=== PATIENT | male | born 1990 | race African-American/Black ===

== ENCOUNTER 2019-11-19 23:00 | Inpatient (IN) ==
--- NOTE | 2019-11-19 23:42 | EKG Report ---
Test Performed on : 11/19/2019 11:15:44 PM Test Reason : sob Blood Pressure : / mmHG Vent. Rate : 120 BPM Atrial Rate : 120 BPM P-R Int : 148 ms QRS Dur : 098 ms QT Int : 332 ms P-R-T Axes : 053 -08 061 degrees QTc Int : 469 ms Sinus tachycardia. Biatrial enlargement Abnormal ECG No previous ECGs available Unconfirmed Result
[2019-11-19 23:57] LABS: BASO# 0.01 X1000 (0.0-0.2); BASO% 0.1 % (0.0-0.8); HEMATOCRIT 40.7 % (42.0-52.0); HEMOGLOBIN 13.9 g/dL (14.0-18.0); IMM GRAN# 0.02 X1000 (0.0-0.04); IMM GRAN% 0.2 % (0.0-0.5); LYMPH# 0.55 X1000 (1.2-3.4); LYMPH% 6.6 % (20.5-51.1); MCHC 34.2 g/dL (33-37); MCV 82.1 FL (81-99); MONO# 0.42 X1000 (0.11-0.59); MPV 11.3 FL (7.4-10.4); NEUT# 7.34 X1000 (1.4-6.5); NEUT% 88.1 % (42.2-75.2); PLT 178 X1000 (130-400); RBC 4.96 XMIL (4.7-6.1); RDW 14.6 % (11.5-14.5); WBC 8.34 X1000 (4.8-10.8)
[2019-11-20 00:24] LABS: ALB/GLOB RATIO 1.3; ALBUMIN 3.7 g/dL (3.5-5.0); CALCIUM 8.4 mg/dL (8.8-10.2); CREATININE 1.4 mg/dL (0.7-1.2); POTASSIUM 3.1 mmol/L (3.5-5.1); TOTAL BILIRUBIN 0.6 mg/dL (0.20-1.00); TOTAL PROTEIN 6.6 g/dL (6.3-8.3)
[2019-11-20 00:25] LABS: INR 1.53; PROTIME 18.7 Seconds (11.0-16.0)
[2019-11-20 00:26] LABS: PTT 40.3 Seconds (22.3-41.8)
[2019-11-20 01:08] LABS: CK INDEX 0.4 (0.0-2.5); CK-MB 1.95 ng/mL (0.0-5.0)
[2019-11-20 01:17] LABS: URINE SOURCE CLEAN CATCH
[2019-11-20] MEDS ORDERED: KLOR-CON PO ONE (01:32)
[2019-11-20] MEDS ORDERED: NS 1,000 ML IV ONE ×2 (01:32→04:54)
[2019-11-20] MEDS ORDERED: POTASSIUM CHLORIDE 10 MEQ/SWI 10 MEQ/100 ML IVPB IV ONE (01:33)
--- NOTE | 2019-11-20 01:37 | PROVIDER DOCUMENTATION ---
This chart was entered by Chelsea Kruse Scribe, acting as scribe for Jason Young MD. HPI-General Adult - General Source: patient - History of Present Illness -Gen Adult Location of Pain/Injury: reports: generalized Quality of Pain: reports: aching Severity: reports: moderate Onset/Duration: reports: other (1month-changing over 2 days) Timing: reports: still present, changing over time, getting worse Context/Activities at Onset: reports: light activity Modifying Factors: improves with: analgesics (tylenol/motrin-no relief), other medication (doxy, tamiflu, bromfed-no relief) Associated Symptoms: reports: cough, EENT symptoms, fatigue, fever/chills, headaches, muscle aches, sinus congestion/drainage, vomiting (x1). denies: chest pain Similar Symptoms Previously?: Yes Recently seen or treated by another doctor?: Yes (urgent care x 2) <Jason Young - Last Filed: 11/20/19 02:26> - General Source: family <Francisco GutiérrezShaggy - Last Filed: 11/20/19 07:01> - General Chief Complaint: Fever Stated Complaint: FEVER/FLU SX Time Seen by Provider: 11/20/19 00:33 Allergies/Adverse Reactions: Patient Allergies Allergy/AdvReac Type Severity Reaction Status Date / Time No Known Allergies Allergy Verified 11/20/19 01:14 Home Medications: Home Medication List Medication Instructions Recorded Confirmed Last Taken Type Albuterol Sulfate Inhaler 2 puff INH [id number] PRN #1 inhaler 11/20/19 Unknown Rx [Ventolin Hfa] Ibuprofen 800 mg PO TID PRN #20 tab 11/20/19 Unknown Rx Review of Systems - Adult - REVIEW OF SYSTEMS - ADULT Constitutional: reports: chills, fever, fatique Eyes: reports: no symptoms reported Ears, Nose, Mouth & Throat: reports: sinus problem. denies: ear pain, throat pain Cardiovascular: denies: chest pain, palpitations, syncope Respiratory: reports: cough, hemoptysis (blood tinged sputum) Gastrointestinal: reports: vomiting (x1). denies: abdominal pain, diarrhea, nausea Genitourinary: reports: no symptoms reported Musculoskeletal: reports: muscle aches Integumentary: reports: no symptoms reported Neurological: reports: headache/migraines. denies: dizziness/vertigo, syncope Psychiatric: reports: no symptoms reported Endocrine: reports: no symptoms reported Hematologic/Lymphatic: reports: no symptoms reported Allergic/Immunologic: reports: no symptoms reported All Other Systems: Reviewed and Negative <Jason Young. - Last Filed: 11/20/19 02:26> Past History - Adult - PAST MEDICAL HISTORY-ADULT Review of Records: reports: Old Records Reviewed, Nursing Assessment Review, Medications Reviewed, Social history reviewed & non-contributory. Major Childhood Illnesses: reports: denies history Cardiovascular: reports: denies history Respiratory: reports: bronchitis Gastrointestinal: reports: denies history Obstetrical/Gynecological: reports: denies history Genitourinary: reports: denies history Musculoskeletal: reports: denies history Neurological: reports: denies history Endocrine/Immune: reports: denies history Other Conditions: reports: denies history - IMMUNIZATION STATUS Childhood Immunizations: See Nurse Assessment Flu Vaccine: See Nurse Assessment - FAMILY HISTORY Family History: reviewed, not pertinent - SOCIAL HISTORY Smoking: quit greater than 1 year Substance Use: denies Living Situation: family <Jason Young. - Last Filed: 11/20/19 02:26> Physical Exam-General - PHYSICAL EXAM-ADULT Initial Vital Signs Reviewed: Yes - CONSTITUTIONAL General Appearance: alert, no apparent distress, obese - EYES Eyes: PERRL/EOMI - HEAD, EARS, NOSE, MOUTH & THROAT HENMT: normocephalic/atraumatic, moist mucous membranes, normal ENT inspection - NECK Neck: non-tender, full range of motion, supple, normal inspection - RESPIRATORY Respiratory: chest non-tender, lungs clear, normal breath sounds - CARDIOVASCULAR Cardiovascular: normal peripheral pulses, tachycardia - GASTROINTESTINAL (ABDOMEN) Abdominal Exam: normal bowel sounds, non tender, soft - LYMPHATIC Lymphatic: no adenopathy - MUSCULOSKELETAL Back Exam: normal inspection Extremity: normal range of motion, non-tender, normal gait, normal inspection - SKIN Integumentary: normal color, normal turgor, warm/dry - NEUROLOGIC Neurologic: grossly normal, no motor/sensory deficits - PSYCHIATRIC Psych/Mental Status: normal mood/affect, normal thought content, normal thought process, oriented x 3 <Jason Young. - Last Filed: 11/20/19 02:26> Progress - PLAN OF CARE/RESULTS Progress/Plan/Lab Results: Vital Signs - 8 hr 11/19/19 23:07 Temperature 100.1 F H Pulse Rate 128 H Respiratory Rate 20 Blood Pressure 132/81 O2 Sat by Pulse Oximetry 92 L Laboratory Results - last 24 hr 11/19/19 11/19/19 11/19/19 23:24 23:24 23:24 WBC 8.34 RBC 4.96 Hgb 13.9 L Hct 40.7 L MCV 82.1 MCH 28.0 MCHC 34.2 RDW Std Deviation 14.6 H Plt Count 178 MPV 11.3 H Immature Gran % (Auto) 0.2 Neut % (Auto) 88.1 H Lymph % (Auto) 6.6 L Lea % (Auto) 5.0 Eos % (Auto) 0.0 Baso % (Auto) 0.1 Immature Gran # (Auto) 0.02 Neut # (Auto) 7.34 H Lymph # (Auto) 0.55 L Lea # (Auto) 0.42 Eos # (Auto) 0.00 Baso # (Auto) 0.01 PT 18.7 H INR 1.53 PTT (Actin FS) 40.3 Sodium Potassium Chloride Carbon Dioxide Anion Gap BUN Creatinine Estimated GFR/1.73 m2 BUN/Creatinine Ratio Glucose Calculated Osmolality Calcium Total Bilirubin AST ALT Alkaline Phosphatase Total Protein Albumin Globulin Albumin/Globulin Ratio Plasma Lactate 1.3 11/19/19 23:37 WBC RBC Hgb Hct MCV MCH MCHC RDW Std Deviation Plt Count MPV Immature Gran % (Auto) Neut % (Auto) Lymph % (Auto) Lea % (Auto) Eos % (Auto) Baso % (Auto) Immature Gran # (Auto) Neut # (Auto) Lymph # (Auto) Lea # (Auto) Eos # (Auto) Baso # (Auto) PT INR PTT (Actin FS) Sodium 134 L Potassium 3.1 L Chloride 98 Carbon Dioxide 20 L Anion Gap 16 BUN 12 Creatinine 1.4 H Estimated GFR/1.73 m2 60 BUN/Creatinine Ratio 9 Glucose 104 Calculated Osmolality 268 Calcium 8.4 L Total Bilirubin 0.60 AST 23 ALT 33 Alkaline Phosphatase 52 Total Protein 6.6 Albumin 3.7 Globulin 2.9 Albumin/Globulin Ratio 1.3 Plasma Lactate Orders Category Date Time Status Cardiac Monitoring NOW Care 11/19/19 23:58 Active IV Insertion NOW Care 11/19/19 23:58 Active NEWS Score >or=5:Order NEWS Bundle S.O. NOW Care 11/19/19 23:56 Active Notify Provider of NEWS Score NOW Care 11/19/19 23:58 Active CHEST-1 VIEW [RAD] Stat Exams 11/19/19 23:58 Taken BLOOD CULTURE [BLDCUL] Stat Lab 11/19/19 23:24 Ordered CBC WITH ELECTRONIC DIFF [HEME] Stat Lab 11/19/19 23:24 Completed CK PROFILE [SP CHEM] Stat Lab 11/19/19 23:24 Received CMP [COMPREHENSIVE METABOLIC PANEL] [CHEM] Stat Lab 11/19/19 23:37 Completed LACTATE, PLASMA [CHEM] Q3H Lab 11/20/19 02:58 Uncollected LACTATE, PLASMA [CHEM] Q3H Lab 11/20/19 05:58 Uncollected LACTATE, PLASMA [CHEM] Stat Lab 11/19/19 23:24 Completed PROTIME WITH INR [COAG] Stat Lab 11/19/19 23:24 Completed PTT [COAG] Stat Lab 11/19/19 23:24 Completed TROPONIN T HIGH SENSITIVITY Stat Lab 11/19/19 23:24 Received URINALYSIS W/POSS RFLX CULT [URINALYSIS] Stat Lab 11/19/19 23:58 Uncollected O2 Per Protocol Stat Oth 11/19/19 23:58 Active EKG [EKG] Stat Ther 11/19/19 23:36 Draft Result Diagrams: 11/19/19 23:24 11/19/19 23:37 - REASSESSMENT Reassessment #1 Time Reassessed: 02:26 Status: improving (Explained positive flu test result to pt and . He is to continue tamiflu and his doxycycline, cough syr prescribe at the urgent care. Wi ll add albuterol and pt to f/u with PCP in 2 to 3 days. To take ibuprofen for fever, body aches) - EKG 1 Time of EKG reading by physician:: 23:38 EKG Read and Signed by:: Francisco Gutiérrez EKG Interpretation (*Must complete 3 of following elements*): Abnormal (biatrial enlargement) Rate: 120 Rhythm: sinus tach Centre: normal QRS: normal IN Interval: normal ST Wave: normal - XRAY 1 XRAY Study: Chest Impression: Normal (per Dr), See EMR Report <Otuguor,Akpomudiar S. - Last Filed: 11/20/19 02:26> - PLAN OF CARE/RESULTS Progress/Plan/Lab Results: Vital Signs - 8 hr 11/19/19 23:07 11/20/19 02:32 Temperature 100.1 F H 101.7 F H Pulse Rate 128 H 129 H Respiratory Rate 20 20 Blood Pressure 132/81 148/104 O2 Sat by Pulse Oximetry 92 L 94 L 11/20/19 00:45 Influenza Screen - Final Nasopharyngeal Laboratory Results - last 24 hr 11/19/19 11/19/19 11/19/19 23:24 23:24 23:24 WBC 8.34 RBC 4.96 Hgb 13.9 L Hct 40.7 L MCV 82.1 MCH 28.0 MCHC 34.2 RDW Std Deviation 14.6 H Plt Count 178 MPV 11.3 H Immature Gran % (Auto) 0.2 Neut % (Auto) 88.1 H Lymph % (Auto) 6.6 L Lea % (Auto) 5.0 Eos % (Auto) 0.0 Baso % (Auto) 0.1 Immature Gran # (Auto) 0.02 Neut # (Auto) 7.34 H Lymph # (Auto) 0.55 L Lea # (Auto) 0.42 Eos # (Auto) 0.00 Baso # (Auto) 0.01 PT INR PTT (Actin FS) Sodium Potassium Chloride Carbon Dioxide Anion Gap BUN Creatinine Estimated GFR/1.73 m2 BUN/Creatinine Ratio Glucose Calculated Osmolality Calcium Total Bilirubin AST ALT Alkaline Phosphatase Creatine Kinase 466 H Creatine Kinase Index 0.4 CK-MB (CK-2) 1.95 Troponin T High Sens Total Protein Albumin Globulin Albumin/Globulin Ratio Plasma Lactate 1.3 Urine Source Urine Color Urine Turbidity Urine pH Ur Specific [place] Urine Protein Ur Glucose (Stick) Ur Ketones (Stick) Urine Blood Urine Nitrite Urine Bilirubin Urobilinogen Dipstick Urine Leukocytes Urine WBC (Auto) Urine RBC (Auto) U Epithel Cells (Auto) Urine Bacteria (Auto) 11/19/19 11/19/19 11/19/19 23:24 23:24 23:37 WBC RBC Hgb Hct MCV MCH MCHC RDW Std Deviation Plt Count MPV Immature Gran % (Auto) Neut % (Auto) Lymph % (Auto) Lea % (Auto) Eos % (Auto) Baso % (Auto) Immature Gran # (Auto) Neut # (Auto) Lymph # (Auto) Lea # (Auto) Eos # (Auto) Baso # (Auto) PT 18.7 H INR 1.53 PTT (Actin FS) 40.3 Sodium 134 L Potassium 3.1 L Chloride 98 Carbon Dioxide 20 L Anion Gap 16 BUN 12 Creatinine 1.4 H Estimated GFR/1.73 m2 60 BUN/Creatinine Ratio 9 Glucose 104 Calculated Osmolality 268 Calcium 8.4 L Total Bilirubin 0.60 AST 23 ALT 33 Alkaline Phosphatase 52 Creatine Kinase Creatine Kinase Index CK-MB (CK-2) Troponin T High Sens 32 H Total Protein 6.6 Albumin 3.7 Globulin 2.9 Albumin/Globulin Ratio 1.3 Plasma Lactate Urine Source Urine Color Urine Turbidity Urine pH Ur Specific [place] Urine Protein Ur Glucose (Stick) Ur Ketones (Stick) Urine Blood Urine Nitrite Urine Bilirubin Urobilinogen Dipstick Urine Leukocytes Urine WBC (Auto) Urine RBC (Auto) U Epithel Cells (Auto) Urine Bacteria (Auto) 11/20/19 00:50 WBC RBC Hgb Hct MCV MCH MCHC RDW Std Deviation Plt Count MPV Immature Gran % (Auto) Neut % (Auto) Lymph % (Auto) Lea % (Auto) Eos % (Auto) Baso % (Auto) Immature Gran # (Auto) Neut # (Auto) Lymph # (Auto) Lea # (Auto) Eos # (Auto) Baso # (Auto) PT INR PTT (Actin FS) Sodium Potassium Chloride Carbon Dioxide Anion Gap BUN Creatinine Estimated GFR/1.73 m2 BUN/Creatinine Ratio Glucose Calculated Osmolality Calcium Total Bilirubin AST ALT Alkaline Phosphatase Creatine Kinase Creatine Kinase Index CK-MB (CK-2) Troponin T High Sens Total Protein Albumin Globulin Albumin/Globulin Ratio Plasma Lactate Urine Source CLEAN CATCH Urine Color YELLOW Urine Turbidity CLEAR Urine pH 6.0 Ur Specific [place] 1.005 Urine Protein NEGATIVE Ur Glucose (Stick) NEGATIVE Ur Ketones (Stick) NEGATIVE Urine Blood NEGATIVE Urine Nitrite NEGATIVE Urine Bilirubin NEGATIVE Urobilinogen Dipstick NORMAL Urine Leukocytes NEGATIVE Urine WBC (Auto) <10 Urine RBC (Auto) <10 U Epithel Cells (Auto) <10 Urine Bacteria (Auto) NEGATIVE Orders Category Date Time Status Cardiac Monitoring NOW Care 11/19/19 23:58 Active IV Insertion NOW Care 11/19/19 23:58 Completed NEWS Score >or=5:Order NEWS Bundle S.O. NOW Care 11/19/19 23:56 Active Notify Provider of NEWS Score NOW Care 11/19/19 23:58 Active CHEST-1 VIEW [RAD] Stat Exams 11/19/19 23:58 Taken BLOOD CULTURE [BLDCUL] Stat Lab 11/19/19 01:09 Results CBC WITH ELECTRONIC DIFF [HEME] Stat Lab 11/19/19 23:24 Completed CK PROFILE [SP CHEM] Stat Lab 11/19/19 23:24 Completed CMP [COMPREHENSIVE METABOLIC PANEL] [CHEM] Stat Lab 11/19/19 23:37 Completed INFLUENZA SCREEN A/B Stat Lab 11/20/19 00:45 Completed LACTATE, PLASMA [CHEM] Lab 11/20/19 02:58 Uncollected LACTATE, PLASMA [CHEM] Lab 11/20/19 05:58 Uncollected LACTATE, PLASMA [CHEM] Stat Lab 11/19/19 23:24 Completed PROTIME WITH INR [COAG] Stat Lab 11/19/19 23:24 Completed PTT [COAG] Stat Lab 11/19/19 23:24 Completed TROPONIN T HIGH SENSITIVITY Stat Lab 11/19/19 23:24 Completed URINALYSIS W/POSS RFLX CULT [URINALYSIS] Stat Lab 11/20/19 00:50 Completed 0.9% Sodium Chloride Inj [Ns] 1,000 ml Med 11/20/19 01:32 Discontinued IV 999 mls/hr Ketorolac [Toradol] Med 11/20/19 02:36 Discontinued 30 mg IV NOW ONE Potassium Chloride 10 Meq/Swi Med 11/20/19 01:33 Discontinued 10 meq in 100 ml IV ONCE Potassium Chloride E.r. [Klor-Con] Med 11/20/19 01:32 Discontinued 40 meq PO NOW ONE O2 Per Protocol Stat Oth 11/19/19 23:58 Active EKG [EKG] Stat Ther 11/19/19 23:36 Draft Result Diagrams: 11/19/19 23:24 11/19/19 23:37 - REASSESSMENT Reassessment #2 Time Reassessed: 03:18 Status: unchanged (HR 132/MIN AND BP 160/. NOT ON A BP MED , NOT AWARE IF CHRONICALLY HYPERTENSIVE. ADD LOPRESSOR NOW.) Reassessment #3 Time Reassessed: 04:36 Status: unchanged (PT STILL FEBRILE, TACHYCARDIC AND HYPERTENSIVE. I HAVE TAKEN TIME TO RE-TAKE HPI AND RE-EXAMINE PT AND DATA. : PT ILL FOR 1 WEEK. GIVEN DOXY AND TAMIFLU FOR 'BRONCHITIS AND PROBABLE FLU (W/ NEG FLU TEST)'.SINUS CONGESTION AND PND, COUGH AND RED/BROWN SPUTM,SOB,MALAISE,H/A. HX OF UNTREATED HTN (NO HEALTH INSURANCE UNTIL 1 MONTH AGO).UNCONTROLLED FEVER TODAY AND PAST 2 DAYS ON DOXY. CXR LOOKS TO HAVE RIGHT BASILAR INFILTRATE.) Reassessment #4 Time Reassessed: 06:46 Status: worsening (pt bacame hypoxic w/ P Ox 89 on rm air. 93% on 2 liter oxygen. calling hospitalist) Reassessment #5 Time Reassessed: 07:00 Status: unchanged (BP BETTER BUT STILL TACHYCARDIA, HYPOXIC, DIAPHORETIC. HAS HAD PNEUMONIA ONCE IN THE PAST.) - CONSULTS/PCP/HOSPITALIST Notification #1 *Consult/PCP/Hospitalist*: DR BAKER Time Discussed: 06:47 Consult Disposition: Admit <Francisco Gutiérrez - Last Filed: 11/20/19 07:01> Departure - Departure Date of Disposition Decision: 11/20/19 Time of Disposition Decision: 02:29 Certified Medical Emergency: Emergent - Critical Care Note This patient required my direct & personal management of CC.: No <Jason Young - Last Filed: 11/20/19 02:26> - Departure Certified Medical Emergency: Emergent - Critical Care Note This patient required my direct & personal management of CC.: Yes Total Time (mins): 46 Critical Care Statement: This patient required my direct personal management to treat or rule out processes, the absence of which, could potentiallly result in sudden, clinically significant life or limb threatening deterioration. <Francisco Gutiérrez - Last Filed: 11/20/19 07:01> - Departure DIAGNOSIS: Influenza A, Hypokalemia, Renal insufficiency, Hypoxemia, Tachycardia Pneumonia Qualifiers: Pneumonia type: due to unspecified organism Laterality: right Lung location: lower lobe of lung Qualified Code(s): J18.1 - Lobar pneumonia, unspecified organism Disposition: ADMITTED INPATIENT 09 Condition: Fair Additional Instructions: ED Follow Up Instructions: You have been treated by a care provider in the Emergency Department. These instructions are being provided to you so you can have an understanding of how to care for yourself upon discharge. Upon discharge from the Emergency Department, you are responsible for making arrangements for follow-up care by a physician of your choice. You have a positive flu test result, you are to continue tamiflu and doxycycline, cough syrup prescribe at the urgent care. start albuterol and pt to f/u with PCP in 2 to 3 days. To take ibuprofen for fever, body aches Take all prescribed medications as directed. Return to the Emergency Department immediately for any new or worsening symptoms. You may call the Physician Referral phone number at [phone] to obtain a list of Physicians who are taking new patients. Prescriptions: Ibuprofen 800 mg PO TID PRN #20 tab PRN Reason: Fever Prescription Printed Albuterol Sulfate Inhaler [Ventolin Hfa] 2 puff INH [id number] PRN #1 inhaler PRN Reason: Cough Prescription Printed Referrals and Follow-Ups: None,PCP [Primary Care Provider] - Discharge Education: Influenza, Adult, [id number], Hypokalemia, Acute Bronchitis, Adult, [id number] Attestation - Physician/ ANGELINA Attestation Patient care was provided by Advanced Practice Provider:: No The physician spent face to face time with patient:: Yes Advanced Practice Provider documentation review:: Supervising physician onsite and consulted in the evaluation and care of this patient. The physician did have a face to face encounter with the patient. <Jason Young - Last Filed: 11/20/19 02:26> - Physician/ ANGELINA Attestation Patient care was provided by Advanced Practice Provider:: No The physician spent face to face time with patient:: Yes Advanced Practice Provider documentation review:: Supervising physician onsite and consulted in the evaluation and care of this patient. The physician did have a face to face encounter with the patient. <Francisco Gutiérrez - Last Filed: 11/20/19 07:01> This chart was documented by the indicated scribe, (Chelsea Kruse Scribe) and accurately reflects the services I performed and decisions made by me, Jason Young MD, as attested by the provider's signature.
[2019-11-20 02:10] LABS: COLOR YELLOW; TURBIDITY URINE CLEAR (CLEAR)
[2019-11-20 02:11] LABS: BILIRUBIN URINE NEGATIVE (NEGATIVE); BLOOD URINE NEGATIVE (NEGATIVE); GLUCOSE URINE NEGATIVE (NEGATIVE); KETONE URINE NEGATIVE (NEGATIVE); LEUKOCYTES URINE NEGATIVE (NEGATIVE); NITRITE URINE NEGATIVE (NEGATIVE); PROTEIN URINE NEGATIVE (NEGATIVE); SP GRAVITY URINE 1.005; UR EPITHELIAL CELLS <10 /HPF (<10); URINE BACTERIA NEGATIVE /HPF; URINE RBC <10 /HPF (<10); URINE WBC <10 /HPF (<10); UROBILINOGEN URINE NORMAL (NORMAL)
[2019-11-20] MEDS ORDERED: TORADOL IV ONE (02:36)
[2019-11-20] MEDS ORDERED: LOPRESSOR IV ONE (03:19)
[2019-11-20] MEDS ORDERED: TYLENOL PO ONE (03:59)
[2019-11-20] MEDS ORDERED: TYLENOL ONE (04:14)
[2019-11-20] MEDS ORDERED: ZITHROMAX PO ONE (04:43)
[2019-11-20] MEDS ORDERED: ROCEPHIN 1 GM in NS 50 ML IV ONE (04:43)
[2019-11-20] MEDS ORDERED: NORVASC PO ONE (04:54)
[2019-11-20] MEDS ORDERED: DUONEB (A & A) INH ONE (06:20)
--- NOTE | 2019-11-20 07:04 | Diag Imaging Result Doc PS360 ---
EXAM: CHEST-1 VIEW 11/19/2019 HISTORY: fever TECHNIQUE: AP portable upright at 0010 COMMENT: There is cardiomegaly. There is ill-defined opacity in the right lower lobe particularly in the costophrenic angle region. There may be a small effusion. There are no previous studies. IMPRESSION: Right lower lobe pneumonia plus minus pleural effusion. Electronically signed by Roverto Mcneil 11/20/2019 7:02 AM
[2019-11-20] MEDS ORDERED: DUONEB (A & A) INH PRN (08:08)
[2019-11-20] MEDS ORDERED: TYLENOL PO PRN (08:08)
[2019-11-20] MEDS ORDERED: DUONEB (A & A) INH SCH (08:08)
[2019-11-20] MEDS ORDERED: APRESOLINE IV PRN (08:08)
[2019-11-20] MEDS ORDERED: MOTRIN PO PRN (08:08)
[2019-11-20] MEDS ORDERED: XOPENEX NEB INH PRN (09:22)
[2019-11-20] MEDS ORDERED: NS 1,000 ML IV SCH (09:30)
[2019-11-20] MEDS ORDERED: MORPHINE IV ONE (10:15)
[2019-11-20] MEDS ORDERED: PHENERGAN IV ONE (10:16)
[2019-11-20] MEDS ORDERED: SODIUM CHLORIDE 0.9% INJ ONE (10:16)
[2019-11-20] MEDS: XOPENEX NEB INH SCH ×3 (10:19→22:02)
[2019-11-20] MEDS ORDERED: LABETALOL IV ONE (10:24)
[2019-11-20] MEDS ORDERED: ATIVAN IV ONE (10:29)
[2019-11-20] MEDS ORDERED: LASIX IV ONE (10:30)
[2019-11-20] MEDS ORDERED: NITROGLYCERIN 0.4 MG/HR PATCH TD ONE (10:32)
[2019-11-20] MEDS ORDERED: ATIVAN ONE (10:36)
[2019-11-20] MEDS ORDERED: LASIX ONE (10:36)
[2019-11-20] MEDS ORDERED: DIPRIVAN 1% 1,000 MG/100 ML BOTTLE IV SCH (10:45)
[2019-11-20] MEDS ORDERED: CARDENE 40 MG/NS 40 MG/200 ML PIGGYBACK IV SCH (11:00)
--- NOTE | 2019-11-20 11:26 | EKG Report ---
Test Performed on : 11/20/2019 10:49:37 AM Test Reason : RHYTHM CHECK Blood Pressure : / mmHG Vent. Rate : 114 BPM Atrial Rate : 114 BPM P-R Int : 140 ms QRS Dur : 106 ms QT Int : 328 ms P-R-T Axes : 062 217 071 degrees QTc Int : 452 ms Sinus tachycardia. Biatrial enlargement Right superior axis deviation Pulmonary disease pattern Abnormal ECG When compared with ECG of 19-NOV-2019 23:15, (Unconfirmed) QRS axis shifted left ST elevation now present in Anterior leads Confirmed by Prabhu Fraire MD ([id number]) on 11/20/2019 7:46:42 PM
[2019-11-20 11:29] LABS: URINE SOURCE CATH
[2019-11-20] MEDS: OFIRMEV 1000 MG/ISOTONIC SOLN 1,000 MG/100 ML BOTTLE IV PRN (11:35)
--- NOTE | 2019-11-20 11:37 | Diag Imaging Result Doc PS360 ---
EXAM: CHEST-PORTABLE 11/20/2019 HISTORY: ET tube and OG tube placement TECHNIQUE: AP chest at 1111 COMMENT: There is an endotracheal tube with its tip at the thoracic inlet and an orogastric tube which passes below the diaphragm. There is diffuse alveolar pulmonary edema which was not the case on 11/20/2019 at 1210. IMPRESSION: Florid pulmonary edema. Cardiomegaly. Electronically signed by Roverto Mcneil 11/20/2019 11:34 AM
--- NOTE | 2019-11-20 11:41 | HISTORY AND PHYSICAL ---
ADDENDUM: I have seen and examined Mr. Coelho today. I got to hear about Mr. Coelho early on this morning, when I was told that he has been admitted for respiratory failure, flu positive, and pneumonia. I understand he was initially admitted to the [facility]. However, he became more short of breath, and then was sent to do a CTA to rule out PE. Unfortunately, at the CT scan, he became more short of breath, he became extremely diaphoretic, vomiting or spitting out some pink, frothy sputum, so he was brought immediately to the ICU. During the initial stages in the ICU, he was given morphine. He was also given 20 mg of IV labetalol, 2 mg of Ativan, and 25 mg of Phenergan. He continued to show impending respiratory arrest, so Anesthesia was called for endotracheal intubation. Before Anesthesia could come in, Mr. Coelho lost pulse, and he was resuscitated for anout 10 minutes. I think a total of about 5 to 6 epinephrine were given, 1 amp of bicarbonate, 1 amp of calcium gluconate were given. The patient was also successfully intubated by Anesthesia group. Post intubation, an EKG seems to suggest tachycardia, some right heart strain, and suspicion of ST-segment mild elevation in V1 and V2. Cardiology was called stat, and I have discussed this with Dr. Lomeli. After the post resuscitation, we are still waiting for imaging studies and laboratory data to have a final diagnosis on Mr. Coelho. WORKING DIAGNOSES: 1. Acute cardiorespiratory arrest. Initial Respiratory arrest followed with cardiac arrest. Patient intubated. Pulmonary on board. I have discussed case with Dr Robbins. 2. Acute pulmonary edema . acute myocardial infarction to be ruled out. Cardiology consulted. I have discussed case with Dr. Lomeli. 3. Severe uncontrolled hypertension, suspicious for hypertensive emergency. 4. Flu positive with severe influenza pneumonia. 5. Renal failure. For now, Mr. Coelho is intubated. Will get both Cardiology and Pulmonary Medicine to evaluate him. We are concerned if he has an acute myocardial infarction or an acute pulmonary emboli causing what seems to be heart failure and respiratory arrest. We are getting a stat echocardiogram, and will wait for Cardiology to evaluate him, and then go from there. Please refer to the details of the history and physical that has been dictated by the GRAVITY PROSPECTING OPERATOR in the chart. TIME SPENT: Critical time spent is 1 hour 30 minutes. cc: Osvaldo Santa MD MTDD
[2019-11-20] MEDS: ZOSYN 3.375 GM in NS 50 ML IV SCH ×3 (11:45→23:01)
[2019-11-20] MEDS: ZYVOX 600 MG/D5W 600 MG/300 ML IVPB IV SCH ×2 (11:45→23:01)
[2019-11-20 11:46] LABS: ALLEN TEST YES; BE -12.5 mmoll (-3.0-3.0); BLOOD TYPE ARTERIAL; METHB 0.6 % (0.0-1.5); O2(CT) 19.1 mL/dL (15.0-23.0); O2HB 90.5 % (95.0-99.0); PO2(98.6) 77 mmHg (60-100); SAMPLE BLOOD; SAO2 92.7 % (95.0-100.0); SRATE 15 BPM; TVOL 500 mL
[2019-11-20 11:47] LABS: BILIRUBIN URINE NEGATIVE (NEGATIVE); BLOOD URINE MODERATE (NEGATIVE); COLOR YELLOW; GLUCOSE URINE NEGATIVE (NEGATIVE); KETONE URINE TRACE mg/dL (NEGATIVE); LEUKOCYTES URINE NEGATIVE (NEGATIVE); NITRITE URINE NEGATIVE (NEGATIVE); PROTEIN URINE 200 mg/dL (NEGATIVE); TURBIDITY URINE HAZY (CLEAR); UROBILINOGEN URINE NORMAL (NORMAL)
[2019-11-20 11:48] LABS: UR EPITHELIAL CELLS <10 /HPF (<10); URINE BACTERIA NEGATIVE /HPF; URINE RBC TNTC /HPF (<10); URINE WBC 20-40 /HPF (<10)
[2019-11-20 11:49] LABS: pH(98.6) 7.03 (7.35-7.45)
[2019-11-20 11:50] LABS: MODALITY VENTILATOR; PCO2(98.6) 75 mmHg (35-45)
[2019-11-20] MEDS ORDERED: NS 500 ML ONE (11:55)
[2019-11-20] MEDS ORDERED: NS 500 ML IV PRN (12:07)
[2019-11-20] MEDS ORDERED: TYLENOL PR PRN (12:07)
[2019-11-20] MEDS ORDERED: SODIUM PHOSPHATE 10 MMOL in NS 250 ML IV PRN (12:15)
[2019-11-20] MEDS ORDERED: SODIUM PHOSPHATE 20 MMOL in NS 250 ML IV PRN (12:15)
[2019-11-20] MEDS ORDERED: POTASSIUM CHLORIDE 60 MEQ in NS 500 ML IV PRN (12:15)
[2019-11-20] MEDS ORDERED: MAGNESIUM SULFATE 2 GM in STERILE WATER INJ. 50 ML IV PRN (12:15)
[2019-11-20] MEDS ORDERED: POTASSIUM CHLORIDE 40 MEQ in NS 250 ML IV PRN (12:15)
[2019-11-20] MEDS ORDERED: LOVENOX SUBQ SCH ×2 (12:15)
[2019-11-20] MEDS: NS 500 ML IV SCH (12:30)
[2019-11-20] MEDS: NIMBEX 80 MG in NS 160 ML IV SCH ×3 (12:40→23:57)
[2019-11-20 12:43] LABS: BASO# 0.02 X1000 (0.0-0.2); BASO% 0.2 % (0.0-0.8); EOS# 0.01 X1000 (0.0-0.7); EOS% 0.1 % (0.0-10.0); HEMATOCRIT 43.7 % (42.0-52.0); HEMOGLOBIN 14.5 g/dL (14.0-18.0); IMM GRAN# 0.05 X1000 (0.0-0.04); IMM GRAN% 0.4 % (0.0-0.5); LYMPH# 0.98 X1000 (1.2-3.4); LYMPH% 8.3 % (20.5-51.1); MCH 27.9 PG (27-31); MCHC 33.2 g/dL (33-37); MONO# 0.18 X1000 (0.11-0.59); MONO% 1.5 % (1.7-9.3); MPV 11.3 FL (7.4-10.4); NEUT# 10.52 X1000 (1.4-6.5); NEUT% 89.5 % (42.2-75.2); PLT 171 X1000 (130-400); RDW 14.6 % (11.5-14.5); WBC 11.76 X1000 (4.8-10.8)
[2019-11-20 12:45] LABS: INR 1.77
--- NOTE | 2019-11-20 12:45 | CARDIOLOGY CONSULTATION ---
DATE: 11/20/2019 REQUESTING PHYSICIAN: Dr. Santa from the Hospitalist Service. REASON FOR CONSULTATION: The patient has suffered a cardiorespiratory arrest and has an abnormal chest x-ray suggesting heart failure. HISTORY: The patient is 29 years of age, presented to the emergency room, I believe at midnight or shortly after midnight, complaining of fever, cough, shortness of breath. This had been going on for a few days. Apparently, the patient had been to an urgent care, where he was prescribed doxycycline and Tamiflu. The patient was tested in the emergency room, and they found that he has a positive result for influenza A. In the ER, the patient apparently became more dyspneic, and as he was getting ready to have a CT scan of the chest, he developed acute respiratory distress,stopped breathing, lost his pulse and required resuscitation measures. Please refer to Hospitalist note for those specific details. He was intubated, brought to ICU, and they called me stat in consultation. The patient was in sinus tachycardia. The chest x-ray post intubation shows florid pulmonary edema. His EKG really did not show any acute ischemic changes. The patient had a clear summation gallop sound on auscultation, raising concern for acute heart failure. I requested a stat echocardiogram that was done in a limited fashion in the ICU that showed that his left ventricle is significantly impaired, with an ejection fraction that is probably no better than 20%, with a [id number] degree of mitral regurgitation, no evidence of pericardial effusion, and no evidence of dilatation of the inferior vena cava. PAST MEDICAL HISTORY: As reported by the indicates that he has had hypertension, untreated for some time. PAST SURGICAL HISTORY: There is no pertinent surgical history. MEDICATIONS: The patient has not been taking any other home medication. SOCIAL HISTORY: He is . FAMILY HISTORY: Noncontributory. REVIEW OF SYSTEMS: At this time is noncontributory. The patient is intubated, and he cannot cooperate with any information. PHYSICAL EXAMINATION: Vital Signs: His temperature at this time is 105.6 degrees Fahrenheit, pulse rate is 135, respirations 28 beats per minute, his blood pressure right now is 134/103. General: The patient is a well-developed, obese male. His stated weight is 330 pounds with a BMI of 46. He is intubated. There is some frothy, bloody phlegm noted on the orotracheal tube. HEENT: There are no obvious abnormalities. Chest: Diffusely diminished breath sounds. Heart: Heart sounds are tachycardic. Gallop sound is noted. Extremities: Palpable pulses, somewhat decreased in intensity. No obvious edema. Neurological: Cannot be performed. The patient is on IV propofol. IMAGING AND LABORATORY DATA: His blood work on initial encounter showed white cell count was 8340, hemoglobin 13.9, hematocrit 40.7. Sodium 134, potassium 3.1, BUN 12, creatinine 1.4. Creatine kinase 466 units. Troponin 34 and 32 ng/L. His blood gases at the time of intubation showed pH was 7.3, pCO2 of 75, PO2 of 77. His chest x-ray post intubation shows florid pulmonary edema. IMPRESSION: 1. Patient who presents essentially with acute respiratory distress,hypoxemic respiratory failure in association with influenza type A, pulmonary edema. Patient probably has ARDS. 2. Acute congestive heart failure. This could be myocarditis or associated to long-term hypertension, untreated. 3. Obesity. 4. Reported history of untreated hypertension. RECOMMENDATION: At this time, the patient is in critical condition. He is behaving like adult respiratory distress syndrome. We have requested a consultation with Dr. Cali Robbins, Pulmonary, for further decision making. At this time, we have installed a central line, PICC type of line. We will measure central venous pressure with that, and take it from there. Prognosis is very guarded. Initial discussions with other physicians regarding the possibility of referring this patient to a tertiary care center. Further advice will be forthcoming. Thank you for asking us to participate in his evaluation. cc: Richard Lomeli MD [facility]
[2019-11-20 12:52] LABS: BANDS 6 % (0-1); EOS 2 % (1-10); LYMPHS 18 % (21-51); MONO 2 % (1-9); SEGS 72 % (42-75)
[2019-11-20] MEDS ORDERED: FENTANYL ONE (12:57)
[2019-11-20] MEDS: FENTANYL 1,000 MICROGM in NS 80 ML IV SCH (13:00)
[2019-11-20 13:01] LABS: ALB/GLOB RATIO 1.2; ALBUMIN 3.3 g/dL (3.5-5.0); CALCIUM 8.3 mg/dL (8.8-10.2); CREATININE 2.4 mg/dL (0.7-1.2); MAGNESIUM 2.1 mg/dL (1.5-2.7); PHOSPHORUS 6.6 mg/dL (2.7-4.5); POTASSIUM 4.9 mmol/L (3.5-5.1); TOTAL BILIRUBIN 0.39 mg/dL (0.20-1.00); TOTAL PROTEIN 6.1 g/dL (6.3-8.3)
[2019-11-20] MEDS: SODIUM CHLORIDE 0.9% INJ SCH ×2 (13:16→23:56)
[2019-11-20] MEDS: PEPCID IV SCH ×2 (13:16→23:56)
[2019-11-20] MEDS: TAMIFLU PO SCH ×2 (13:17→20:47)
[2019-11-20] MEDS: ATIVAN IV SCH ×3 (13:18→20:47)
[2019-11-20] MEDS: LACRI-LUBE OPH OINT BOTH EYES SCH ×3 (13:18→23:56)
[2019-11-20 13:39] LABS: ALLEN TEST YES; BE -9.6 mmoll (-3.0-3.0); BLOOD TYPE ARTERIAL; HCO3-(ACT) 17.1 mmoll (20.0-26.0); METHB 0.7 % (0.0-1.5); O2(CT) 17.9 mL/dL (15.0-23.0); PO2(98.6) 57 mmHg (60-100); SAMPLE BLOOD; SAO2 87.9 % (95.0-100.0); SRATE 28 BPM; THB 14.9 g/dL (11.5-17.4); TVOL 500 mL
[2019-11-20 13:42] LABS: pH(98.6) 7.17 (7.35-7.45)
[2019-11-20 13:43] LABS: O2HB 85.7 % (95.0-99.0); PCO2(98.6) 53 mmHg (35-45)
[2019-11-20] MEDS ORDERED: NIPRIDE 100 MG in D5W 250 ML IV SCH (13:43)
[2019-11-20] MEDS ORDERED: ZYVOX 600 MG/D5W 600 MG/300 ML IVPB IV SCH (13:43)
--- NOTE | 2019-11-20 14:12 | HISTORY AND PHYSICAL ---
PRIMARY CARE PROVIDER: None. CHIEF COMPLAINT: Fever, chills, and coughing up blood. HISTORY OF PRESENT ILLNESS: Mr. Coelho is a 29-year-old male who had went to the Urgent Care on Monday and was diagnosed with bronchitis and was given medication from the Urgent Care. He went back to the Urgent Care on Monday after he started running a fever. It appears that he was given doxycycline and Bromfed from the Urgent Care. He reported that he had been dealing with congestion for about a month, and was taking [id number] Mucinex, and it would wax and wane. He reports being diagnosed with hypertension about 2 years ago, and probably undiagnosed sleep apnea. Workup in the ED showed he was flu A positive with a right lower lobe pneumonia plus or minus of pleural effusion. He was initially going to be discharged home to continue his doxycycline, cough syrup, and added Tamiflu. However, when he was re-evaluated, I believe his O2 saturation dropped to 93, and he was given IV Rocephin and p.o. Zithromax. Over the course of the night, he got I believe 2 L fluid bolus and treated his potassium. He was given IV metoprolol for his tachycardia as well as 1000 mg of p.o. Tylenol for his fever. He had a normal white count, some renal insufficiency with a creatinine of 1.4. Upon assessment, the patient was actively coughing up some bright red sputum that looked more like irritation. There was not initially any pink frothy sputum. We decided to change him from the regular floor to [facility]. His O2 saturations were hanging around 93 to 92 and ordered him a CTA of the chest and ABG's. The patient was taken to CT and was CAT called. He was found to be profusely diuretic, O2 saturations were in the 80s. He was placed on a nonrebreather. Dr. Santa came down to CT after his O2 levels came back up to the 90s. He was sent up to the ICU, a CT scan was not performed. The patient's respiratory status continued to decline. Dr. Santa still at bedside. He made the decision to go ahead and electively intubate him. He then started spitting out pink frothy sputum. I believe this occurred and started in CT scan, and continued on into the ICU. He was given intravenous labetalol, Ativan, as well as Phenergan. Anesthesia came to the bedside to intubate. The patient lost a pulse. CPR was initiated per ACLS protocol. He was given about 6 rounds of epinephrine, bicarb, calcium gluconate, and had a return to ROSC. He had a post cardiac EKG that showed tachycardia that looked like he might have had some ST elevation in lead V1 and V2. Cardiology as well as pulmonology were consulted stat as well as a stat echocardiogram. We will continue with further treatment and evaluation. PAST MEDICAL HISTORY: 1. Hypertension, not on any medications. 2. Probable sleep apnea, undiagnosed. PAST SURGICAL HISTORY: Bilateral knee meniscus and wisdom teeth extraction. SOCIAL HISTORY: He is . He works at [employer]. He just recently got insurance a month ago. Him and his have been on a low carb diet, and he has lost 50 to 60 pounds over the course of 2 years. FAMILY HISTORY: Grandmother with heart disease. Maternal uncle with diabetes and CVA. Mother with breast cancer. Multiple family members as well with different types of cancer. He could not elaborate anymore. Father just had a brain aneurysm 2 weeks ago that [facility] [place] [facility]. REVIEW OF SYSTEMS: Twelve-point review of systems completely negative except for those mentioned in HPI. PHYSICAL EXAMINATION: VITAL SIGNS: Temperature 101.9 degrees, heart rate 131, respirations 13, blood pressure is 134/103, and O2 is 100% on nasal cannula, but also with coughing spells, he would go down to 90 to 93. GENERAL: Mr. Coelho is a 29-year-old male who is sitting on the side of the bed coughing up some hemoptysis answering all questions appropriately. He was in no acute distress at the time of initial assessment. HEENT: Atraumatic, normocephalic. PERRL. NECK: Supple. Trachea midline. CV: Tachycardic. S1, S2 was appreciated. I did not appreciate any murmurs, gallops, or rubs at the time of my initial assessment, however, after intubation, he did have an S3. I could not appreciate any JVD or lower extremity edema. PULMONARY: Scattered rhonchi throughout all lung jain. Some mild expiratory wheezes in the upper bases. He did have some diffuse crackles bilaterally. I believe it was worse on the left than the right. ABDOMEN: Obese soft, nontender, and nondistended. Positive bowel sounds 4 quads. He was moving all extremities well. NEUROLOGIC: There were no focal deficits. He was awake. He was alert. He was oriented, answered all questions appropriately. DIAGNOSTIC DATA: Initial chest x-ray showed a right lower lobe pneumonia plus or minus a pleural effusion. Repeat chest x-ray after intubation showed florid pulmonary edema and cardiomegaly. Initial EKG was a sinus tachycardia with bi-atrial enlargement at 120 beats per minute. This EKG was not on the chart at the time of my assessment. Follow-up EKG after code status did show some ST elevation present in anterior leads with right axis deviation at 114 beats per minute. LABORATORY: Initial labs: White count 8, hemoglobin and hematocrit of 13 and 40, and platelet count was 178,000. PT 18, INR 1.43, and PTT 40. Chemistries: Sodium was 134, potassium 3.1, carbon dioxide was 20. Anon gap was 16, BUN was 12, creatinine 1.4 blood glucose was 104, magnesium was 1.4, and calcium 8.4. First troponin that was checked off his 2300 labs was 34. This was requested after his code as well as a proBNP of 3227 requested to be drawn off his initial labs. Initial lactate was 1.3, 2.0 and then 2.7. ASSESSMENT AND PLAN: 1. Flu A positive, initiated on Tamiflu. 2. Right lower lobe pneumonia. He was initiated on Rocephin and Zithromax, supplemental O2, and bronchodilators. 3. Uncontrolled hypertension. 4. Acute kidney injury versus some underlying renal insufficiency secondary to his hypertension. 5. Undiagnosed sleep apnea. 6. Hemoptysis that turned into pink frothy sputum, believed to be acute pulmonary edema. 7. Acute flash pulmonary edema. 8. Acute cardiorespiratory arrest. Cardiology as well as Pulmonology have both been brought on board. Echocardiogram was done at bedside. The patient did require ACLS protocol. See HPI. 9. Question Acute OH concern for acute PE. We did try to send him down for a CTA, which resulted in a CAT call. Again, he is being followed by Cardiology as well as Pulmonology above. 10. Further recommendation to follow physician evaluation, consultation evaluation, diagnostics and laboratory data. TIME SPENT: Critical Care greater than an hour and a half. Dictated by GRABIEL Valdovinos for Osvaldo Santa MD cc: Osvaldo Santa MD [facility]
[2019-11-20 14:14] LABS: CK INDEX 0.4 (0.0-2.5); CK-MB 4.15 ng/mL (0.0-5.0)
--- NOTE | 2019-11-20 14:22 | Diag Imaging Result Doc PS360 ---
EXAM: CHEST-PORTABLE 11/20/2019 HISTORY: advanced ET tube TECHNIQUE: AP portable supine at 1349 COMMENT: There is an endotracheal tube with its tip thoracic inlet and an NG tube which passes below the diaphragm. There is diffuse alveolar opacity particularly in the right upper lobe. The heart size is enlarged. IMPRESSION: Pulmonary edema and cardiomegaly. Electronically signed by Roverto Mcneil 11/20/2019 2:20 PM
[2019-11-20 15:31] LABS: UR CREAT RANDOM 307.2 mg/dL (14-26)
[2019-11-20] MEDS: NS NEB INH SCH (16:13)
[2019-11-20 16:19] LABS: MODALITY VENTILATOR
--- NOTE | 2019-11-20 17:01 | Diag Imaging Result Doc PS360 ---
EXAM: US RENAL 2 (RETROPER) COMPLETE INDICATION: uli/arf TECHNIQUE: COMPARISON: None. FINDINGS: The renal cortical echotexture is increased bilaterally, which is a nonspecific indicator of medical renal disease. No discrete renal mass or hydronephrosis is appreciated. The right kidney measures 12.9 cm and the left kidney measures 12.3 cm in the greatest longitudinal axes. Right renal cortex measures 1.3 cm and the left renal cortex measures 1.4 cm in thickness. There is a Tom catheter in the urinary bladder and the bladder is nondistended. IMPRESSION: Increased renal cortical echotexture bilaterally, which is a nonspecific indicator of medical renal disease. Electronically signed by Jareth Orozco 11/20/2019 4:59 PM
[2019-11-20 18:31] LABS: ALLEN TEST YES; BE -8.5 mmoll (-3.0-3.0); BLOOD TYPE ARTERIAL; HCO3-(ACT) 18.3 mmoll (20.0-26.0); METHB 0.8 % (0.0-1.5); O2(CT) 20.6 mL/dL (15.0-23.0); O2HB 97.4 % (95.0-99.0); PCO2(98.6) 36 mmHg (35-45); PO2(98.6) 144 mmHg (60-100); SAMPLE BLOOD; SAO2 99.6 % (95.0-100.0); SRATE 26 BPM; THB 14.9 g/dL (11.5-17.4); TVOL 500 mL; pH(98.6) 7.29 (7.35-7.45)
[2019-11-20 18:32] LABS: MODALITY VENTILATOR
--- NOTE | 2019-11-20 20:18 | NEPHROLOGY CONSULTATION ---
DATE: 11/20/2019 REASON FOR CONSULTATION: Acute kidney injury. HISTORY OF PRESENT ILLNESS: Mr. Coelho is a 29-year-old black male, who presented to the hospital yesterday with the flu. He has a history of hypertension, obesity, obstructive sleep apnea. His evaluation demonstrated acute medical illness with fever, tachycardia and tachypnea. He unfortunately suffered respiratory and cardiac arrest, requiring CPR. He was able to be resuscitated using standard ACLS protocol, intubated and treated with standard hypothermia protocol. In this context, he had volume resuscitation. The intake and output is not accurately record his total treatment. He had at least 2 L of bolus IV fluids. Urine output has been improving. In this context, his creatinine has risen from 1.4 to 2.4, so we were asked to assist with his management. PAST MEDICAL HISTORY: As above. HOME MEDICATIONS: None. CURRENT MEDICATIONS: Include heparin, acetaminophen, cisatracurium, famotidine, fentanyl, levalbuterol, lorazepam, magnesium, nitroprusside, oseltamivir, potassium, propofol, sodium phosphate, Zosyn, linezolid. SOCIAL HISTORY: Not obtainable aside from what is listed in the admit H P. FAMILY HISTORY: Not obtainable aside from what is listed in the admit H P. REVIEW OF SYSTEMS: Not obtainable aside from what is listed in the admit H P. PHYSICAL EXAMINATION: Vital Signs: Blood pressure 108/73, heart rate 96, respirations 26, T max 105.6. General: Sedate, paralyzed young black man, no acute distress. Skin: Warm and dry. Pupils are equal. Conjunctivae are pink. Oropharynx is dry. Neck: Neck veins are not appreciated. Trachea is midline. Heart: PMI is not palpable. Regular rate and rhythm with tachycardia. No gallops or murmurs. Lungs: Have equal breath sounds. A few scattered crackles. Abdomen: Obese, soft, decreased bowel sounds. No organomegaly. Extremities: With 1+ edema. No clubbing or cyanosis. Neurologic: Neurologic exam is impaired by sedation. IMPRESSION: 1. Acute kidney injury. 2. Ischemic acute tubular necrosis secondary to hypoxemia and cardiac arrest. He appears euvolemic on exam. Electrolytes and acid-base are acceptable. I will monitor on a daily basis regarding possible need for dialysis. He does not meet criteria at this time. Though his chart lists nitroprusside, he is not receiving this. I will discontinue the order. cc: Caesar Roland MD
[2019-11-20] MEDS: HEPARIN SUBQ SCH (20:47)
[2019-11-20 21:50] LABS: CALCIUM 7.5 mg/dL (8.8-10.2); POTASSIUM 4.2 mmol/L (3.5-5.1)
[2019-11-20 22:19] LABS: CK INDEX 0.1 (0.0-2.5); CK-MB 5.88 ng/mL (0.0-5.0)
--- NOTE | 2019-11-20 22:49 | PULMONOLOGY CONSULTATION ---
DATE: 11/20/2019 REQUESTING CLINICIAN: Dr. Santa. REASON FOR CONSULTATION: Status post cardiopulmonary arrest. HISTORY OF PRESENT ILLNESS: Mr. Coelho is a 29-year-old black male, never-smoker, with morbid obesity and untreated hypertension, who presented to the emergency room with 1-week illness. He had been evaluated at an urgent care and received doxycycline and Tamiflu for probable influenza. He did have cough with brown-tinged sputum, headaches and malaise. Influenza screen was positive for influenza A. The patient was initially being prepared for discharge, but his oxygen requirements increased and he was subsequently admitted to the hospitalist service. Due to increasing shortness of breath, a CT pulmonary angiogram was planned, but he was developing progressive respiratory distress and a HAMLET team was called. The patient was brought to the ICU and had multiple episodes of emesis. He became tachycardic in the 140s, along with systolic blood pressures greater than 200. Anesthesia was called for intubation due to respiratory distress. Prior to intubation he sustained a cardiopulmonary arrest. He required approximately 9 minutes of CPR, according to the nursing staff, before return of spontaneous circulation. PAST MEDICAL HISTORY/PROBLEM LIST: 1. Hypertension, without treatment. 2. Morbid obesity, with a BMI greater than 47. SOCIAL HISTORY: He is . He works at a convenience store. No alcohol or tobacco use listed. FAMILY HISTORY: Positive for diabetes, strokes, aneurysms and heart disease. REVIEW OF SYSTEMS: Limited. PHYSICAL EXAMINATION: Physical exam reveals an obese black male who is on mechanical ventilation. The patient was not ventilating well and was paralyzed shortly after my arrival. Oxygen saturation 89%, heart rate 96, respiratory rate increased to 26, temperature 101.9 degrees.HEENT: Pupils are equal but sluggish. Oropharynx appears without lesions, but bloody secretions are noted. Endotracheal tube in position. Frothy bloody secretions in the endotracheal tube. Chest reveals diffuse bilateral crackles. Cardiac exam: Regular rate. Normal S1, normal S2. Abdomen is obese and soft. Extremities reveal trace to 1+ peripheral edema. DIAGNOSTIC DATA: Chest x-ray following intubation reveals endotracheal tube at the thoracic inlet. Endotracheal tube was advanced and now is approximately 5 cm from the mario. Diffuse bilateral infiltrates noted. LABORATORY DATA: White blood count 11.76, hemoglobin 14.5, platelet count 171,000. Arterial blood gas #1: pH 7.03, pCO2 of 75, pO2 of 77, lactate of 4.00. Arterial blood gas #2: pH 7.17, pCO2 of 53, pO2 is 57, lactate 2.0. Sodium 139, potassium 4.2, chloride 104, bicarbonate 19, BUN 29, creatinine 3.0. IMPRESSION: A 29-year-old with history of uncontrolled hypertension and morbid obesity, who presented to the hospital with influenza. He developed acute pulmonary edema and sustained a cardiopulmonary arrest. Echocardiogram reveals significant reduction in left ventricular function, but this was performed immediately after his cardiopulmonary arrest. PLAN: 1. Initiate hypothermia protocol for cardiopulmonary arrest with prolonged CPR. 2. Continue full ventilatory support. 3. Initiate Tamiflu for influenza. 4. Would give DVT prophylaxis, but withhold full anticoagulation given grossly bloody bronchial secretions. 5. Continue gastric acid suppression. 6. Prognosis is guarded to poor. Time spent in critical care management 1 hour and 30 minutes. cc: Cali Robbins MD
[2019-11-21 00:52] LABS: BASO# 0.01 X1000 (0.0-0.2); HEMATOCRIT 42.6 % (42.0-52.0); HEMOGLOBIN 14.2 g/dL (14.0-18.0); IMM GRAN# 0.07 X1000 (0.0-0.04); IMM GRAN% 0.3 % (0.0-0.5); LYMPH# 0.48 X1000 (1.2-3.4); LYMPH% 2.3 % (20.5-51.1); MCH 27.8 PG (27-31); MCHC 33.3 g/dL (33-37); MCV 83.4 FL (81-99); MONO# 0.14 X1000 (0.11-0.59); MONO% 0.7 % (1.7-9.3); MPV 10.6 FL (7.4-10.4); NEUT# 19.85 X1000 (1.4-6.5); NEUT% 96.7 % (42.2-75.2); PLT 95 X1000 (130-400); RBC 5.11 XMIL (4.7-6.1); RDW 14.8 % (11.5-14.5); WBC 20.55 X1000 (4.8-10.8)
[2019-11-21] MEDS: ATIVAN IV SCH ×6 (01:02→21:08)
[2019-11-21 01:14] LABS: CALCIUM 7.3 mg/dL (8.8-10.2); CREATININE 3.2 mg/dL (0.7-1.2); POTASSIUM 4.1 mmol/L (3.5-5.1)
[2019-11-21 01:16] LABS: PHOSPHORUS 5.4 mg/dL (2.7-4.5)
[2019-11-21 01:18] LABS: LYMPHS 2 % (21-51); SEGS 98 % (42-75)
[2019-11-21 01:33] LABS: INR 2.61; PROTIME 28.7 Seconds (11.0-16.0)
[2019-11-21 01:56] LABS: ALLEN TEST YES; BE -9.5 mmoll (-3.0-3.0); BLOOD TYPE ARTERIAL; HCO3-(ACT) 17.5 mmoll (20.0-26.0); METHB 0.6 % (0.0-1.5); O2(CT) 21.4 mL/dL (15.0-23.0); O2HB 98.2 % (95.0-99.0); PCO2(98.6) 32 mmHg (35-45); PO2(98.6) 204 mmHg (60-100); SAMPLE BLOOD; SAO2 99.8 % (95.0-100.0); SRATE 26 BPM; THB 15.2 g/dL (11.5-17.4); TVOL 500 mL
[2019-11-21 01:57] LABS: MODALITY VENTILATOR
[2019-11-21] MEDS: FENTANYL 1,000 MICROGM in NS 80 ML IV SCH ×2 (02:37→22:47)
[2019-11-21] MEDS: NITROGLYCERIN 50 MG/D5W 50 MG/250 ML IV.SOLN IV SCH ×2 (03:20→15:21)
[2019-11-21] MEDS ORDERED: ROCEPHIN 1 GM in NS 50 ML IV SCH (04:30)
[2019-11-21] MEDS: ZOSYN 3.375 GM in NS 50 ML IV SCH ×2 (04:34→11:12)
[2019-11-21 04:41] LABS: ALLEN TEST YES; BE -11.7 mmoll (-3.0-3.0); BLOOD TYPE ARTERIAL; HCO3-(ACT) 15.8 mmoll (20.0-26.0); METHB 1.1 % (0.0-1.5); O2(CT) 21.8 mL/dL (15.0-23.0); O2HB 96.9 % (95.0-99.0); PCO2(98.6) 34 mmHg (35-45); PO2(98.6) 128 mmHg (60-100); SAMPLE BLOOD; SAO2 98.9 % (95.0-100.0); SRATE 26 BPM; THB 15.9 g/dL (11.5-17.4); TVOL 500 mL; pH(98.6) 7.24 (7.35-7.45)
[2019-11-21 04:43] LABS: MODALITY VENTILATOR
[2019-11-21 05:07] LABS: BASO# 0.01 X1000 (0.0-0.2); EOS# 0.04 X1000 (0.0-0.7); EOS% 0.2 % (0.0-10.0); HEMATOCRIT 44.7 % (42.0-52.0); HEMOGLOBIN 15.1 g/dL (14.0-18.0); IMM GRAN# 0.06 X1000 (0.0-0.04); IMM GRAN% 0.3 % (0.0-0.5); LYMPH# 0.69 X1000 (1.2-3.4); LYMPH% 3.4 % (20.5-51.1); MCHC 33.8 g/dL (33-37); MCV 82.9 FL (81-99); MONO# 0.25 X1000 (0.11-0.59); MONO% 1.2 % (1.7-9.3); MPV 11.8 FL (7.4-10.4); NEUT# 19.33 X1000 (1.4-6.5); NEUT% 94.9 % (42.2-75.2); PLT 94 X1000 (130-400); RBC 5.39 XMIL (4.7-6.1); RDW 14.8 % (11.5-14.5); WBC 20.38 X1000 (4.8-10.8)
[2019-11-21 05:27] LABS: ALB/GLOB RATIO 1.2; ALBUMIN 3.1 g/dL (3.5-5.0); CALCIUM 7.5 mg/dL (8.8-10.2); CREATININE 3.4 mg/dL (0.7-1.2); MAGNESIUM 2.3 mg/dL (1.5-2.7); PHOSPHORUS 6.1 mg/dL (2.7-4.5); POTASSIUM 3.8 mmol/L (3.5-5.1); TOTAL BILIRUBIN 1.42 mg/dL (0.20-1.00); TOTAL PROTEIN 5.7 g/dL (6.3-8.3)
[2019-11-21] MEDS: LACRI-LUBE OPH OINT BOTH EYES SCH ×3 (05:29→18:15)
[2019-11-21] MEDS: NIMBEX 80 MG in NS 160 ML IV SCH ×3 (05:30→22:46)
[2019-11-21 05:51] LABS: CK INDEX 0.1 (0.0-2.5); CK-MB 8.79 ng/mL (0.0-5.0)
[2019-11-21] MEDS ORDERED: ZITHROMAX PO SCH (06:00)
--- NOTE | 2019-11-21 07:17 | Diag Imaging Result Doc PS360 ---
EXAM: CHEST-PORTABLE 11/21/2019 HISTORY: Ventilator TECHNIQUE: AP portable at 0523 COMMENT: There is an endotracheal tube with its tip in the thoracic inlet. There is an NG tube which appears to pass below the diaphragm. There is dense alveolar opacity particularly in the right upper lobe and left lower lobe. This appears slightly worse in the right apex and base compared to 11/20/2019. IMPRESSION: Pulmonary edema and/or pneumonia. Electronically signed by Roverto Mcneil 11/21/2019 7:15 AM
[2019-11-21 07:55] LABS: CREATININE 3.4 mg/dL (0.7-1.2); POTASSIUM 3.9 mmol/L (3.5-5.1)
--- NOTE | 2019-11-21 08:21 | EKG Report ---
Test Performed on : 11/21/2019 07:53:53 AM Test Reason : Afib Blood Pressure : / mmHG Vent. Rate : 091 BPM Atrial Rate : 091 BPM P-R Int : 150 ms QRS Dur : 100 ms QT Int : 394 ms P-R-T Axes : 072 160 049 degrees QTc Int : 484 ms Normal sinus rhythm. Possible Left atrial enlargement Right axis deviation Prolonged QT Abnormal ECG When compared with ECG of 20-NOV-2019 10:49, ST no longer elevated in Anterior leads Confirmed by Prabhu Fraire MD ([id number]) on 11/21/2019 8:22:57 PM
[2019-11-21] MEDS: HEPARIN SUBQ SCH ×2 (08:55→21:08)
[2019-11-21] MEDS: TAMIFLU PO SCH ×2 (08:56→21:08)
[2019-11-21] MEDS: XOPENEX NEB INH SCH ×3 (09:24→23:20)
[2019-11-21] MEDS: SODIUM BICARBONATE 8.4% IV PUSH SCH ×3 (09:56→21:08)
[2019-11-21] MEDS: ZYVOX 600 MG/D5W 600 MG/300 ML IVPB IV SCH (10:38)
[2019-11-21] MEDS: NS 500 ML IV SCH (11:49)
[2019-11-21] MEDS: PEPCID IV SCH (11:51)
[2019-11-21] MEDS: SODIUM CHLORIDE 0.9% INJ SCH (11:56)
--- NOTE | 2019-11-21 13:28 | PROGRESS NOTE ---
DATE: 11/21/2019 SUBJECTIVE: This morning, Mr. Coelho is seen in the critical care unit. was at the bedside. There is not any other family member. Per the nursing staff, he has been fairly stable throughout the night. OBJECTIVE: Vital Signs: Blood pressure is 144/99, pulse of 84, respirations are 26, temperature is 98.2 degrees. The patient is going through the hypothermia protocol. General Examination: Mr. Coelho is a 29-year-old, -[place]in[place] gentleman. He is in bed. He is currently intubated and sedated. HEENT: Mucosa is pink and moist. Anicteric. Acyanotic. Neck: Supple. Chest: Air entry is bilaterally reduced. Some crackles in both lungs. Cardiovascular: Regular rate and rhythm. There is S3. Abdomen: Soft. Extremities: No pedal edema. EXTERNAL AUDITOR: The patient is currently paralyzed, going through hypothermia protocol. The pupils are pinpoint but they are reactive. Laboratory Data: WBC is 20.38, hemoglobin is 15.1, platelet count of 94,000. Chemistry is also reviewed. Creatinine is up to 3.4. The AST and ALT are also remarkably elevated. Imaging Studies: A chest x-ray this morning shows pulmonary edema and/or pneumonia. Patient Medications: Include Zosyn and Zyvox. Urine output was 1200. He is currently negative balance of 4502. ASSESSMENT: 1. Acute hypoxemic respiratory failure on presentation leading to cardiopulmonary arrest. We think that this is a combinations of acute pulmonary edema and pneumonia. 2. Acute respiratory distress syndrome. The patient is currently intubated. 3. Severe uncontrolled hypertension, questionable hypertensive emergency on admission. 4. Influenza pneumonia. 5. Acute renal failure, presumably nonoliguric acute tubular necrosis. 6. Transaminitis from shock liver. 7. Sepsis secondary to pneumonia. 8. Elevated troponins, presumably from type 2 myocardial infarction. However, an underlying coronary artery disease cannot be completely ruled out. 9. Severe systolic dysfunction. Unsure if it is secondary to long-standing congestive heart failure or is due to stress cardiomyopathy or a viral cardiomyopathy. Critical time spent 45 minutes. cc: Osvaldo Santa MD MTDD
[2019-11-21 13:32] LABS: INR 2.49; PROTIME 27.6 Seconds (11.0-16.0)
[2019-11-21 13:33] LABS: BASO# 0.02 X1000 (0.0-0.2); BASO% 0.1 % (0.0-0.8); HEMATOCRIT 42.4 % (42.0-52.0); HEMOGLOBIN 14.4 g/dL (14.0-18.0); LYMPH# 0.55 X1000 (1.2-3.4); LYMPH% 3.1 % (20.5-51.1); MCV 82.5 FL (81-99); MONO# 0.09 X1000 (0.11-0.59); MONO% 0.5 % (1.7-9.3); MPV 11.8 FL (7.4-10.4); NEUT# 17.34 X1000 (1.4-6.5); NEUT% 96.3 % (42.2-75.2); PLT 99 X1000 (130-400); RBC 5.14 XMIL (4.7-6.1); RDW 14.6 % (11.5-14.5)
--- NOTE | 2019-11-21 13:45 | CARDIOLOGY PROGRESS NOTE ---
DATE: 11/21/2019 CHIEF COMPLAINT: Shortness of breath, status post cardiac arrest. SUBJECTIVE: Mr. Coelho remains intubated. He is still on maximum support, FiO2 is 100%, PEEP of 10. His blood gases this morning: pH is 7.3, pCO2 is 32, pO2 is 204. All his lab work indicates worsening of multiple organ systems. The BUN has climbed up to 34, which is almost 3 times baseline, creatinine is 3.4, which is more than 2-1/2 times baseline or at least more than twice baseline. His AST and ALT are 2789 units and 1999 units. The CPK is climbing up to 7471 units although index is 0.1% indicating that this is known cardiac origin. Troponin has sensitivity started at 32 reached a peak of 116 at 9:00 p.m. last night and now is down to 95 ng/L. His albumin is dropping to 3.1. His amylase interestingly is 672 units, which is 3 times baseline, and his lipase is 64 units. He is on IV nitroglycerin now. He is not on pressors. He is on the hypothermia protocol, he is completely unresponsive and paralyzed. OBJECTIVE: Vital signs: Blood pressure 152/108, temperature 92.8, pulse 90, respirations 26. General: Unresponsive. Chest: Shows symmetrical breath sounds, equal rise of both hemithoraces. Heart: Sounds regular and rhythmic. I do believe there is a third heart sound. He is not tachycardic like yesterday. Abdomen: Soft. Bowel sounds markedly diminished. Extremities: Show palpable pulses in the radial and dorsalis pedis areas. No obvious edema noted. Neurologic exam: The patient is paralyzed. IMPRESSION: 1. Patient who presents essentially with acute adult respiratory distress syndrome with bilateral pulmonary edema, severe hypoxemic respiratory failure. I believe there are 2 components here, one may be a background of a cardiomyopathy possibly related to hypertension or coinciding with hypertension. I believe the reason for that is that his first electrocardiogram showed indication of biatrial enlargement, which is not an acute change. This has probably been going on for a while. The second is the acute infection from influenza. 2. Multiorgan system failure including acute renal failure, acute liver dysfunction, even signs of pancreatic inflammation/ischemia. 3. Acute systolic heart failure. we will consider repeating echocardiogram tomorrow to see if myocardium may have been stunned from resuscitation efforts. 4. Per conversation with , patient may also have sleep apnea syndrome as another background condition. RECOMMENDATIONS: At this time, we will continue with maximal support as we are doing. We have him on IV nitroglycerin. Because of the acute renal failure, we cannot use BETH inhibitors to unload him. His INR right now is 2.61, which suggests also some degree of coagulopathy since heparin typically does not lead to a rise of the INR at DVT prophylaxis doses. The patient's prognosis is really very dire. I believe the odds are that he will probably not survive this hospitalization. We will continue to follow from the Cardiology viewpoint. Dr. Robbins is in charge of the critical care management of his case. cc: Richard Lomeli MD MTDD
[2019-11-21 13:59] LABS: CALCIUM 7.4 mg/dL (8.8-10.2); CREATININE 3.8 mg/dL (0.7-1.2); MAGNESIUM 2.1 mg/dL (1.5-2.7); PHOSPHORUS 6.2 mg/dL (2.7-4.5); POTASSIUM 3.7 mmol/L (3.5-5.1)
--- NOTE | 2019-11-21 14:02 | PROVIDER PROGRESS NOTE ---
Progress Note Subjective: The patient was intubated and sedated. No family at bedside. Objective: Temperature 92.8, pulse 93, respirations 26, blood pressure 151/110, 02 sat 97% on 100% FiO2 mechanical ventilation. General: elderly -[place] male lying in bed in no acute distress. HEENT: normocephalic, atraumatic. Pupils sluggish but reactive, Mucous membranes dry. Trachea midline. Skin: warm and dry. Neck: supple, 6cm JVD observed. Cardiovascular: distance heart tones noted. S1S2, regular rate and rhythm. No murmur or gallop noted. Respiratory: coarse, scattered crackles anteriorly. Abdomen: soft, nontender, nondistended. Hypoactive bowel sounds noted. : Non inspected, larsen in place. Extremities: Trace edema to BLE. Neurological: Sedated. Labs: WBC 20.55, hemoglobin 14.2, hematocrit 42.6, platelet count 95, sodium 136, potassium 3.8, chloride 102, carbon dioxide 16, BUN 34, creatinine 3.4, phosphorus 6.1, AST 2789, AL T 1998, creatine kinase 7471, plasma lactate 2.7, urine creatinine 307.2, urine random sodium 20, urine random urea nitrogen 1224. Impression: Acute kidney injury. Ischemic acute tubular necrosis secondary to hypoxemia and cardiac arrest. He is on hypothermia protocol. His Creatinine is marginally elevated. At this time, he does not meet requirements for urgent renal replacement therapy. Excellent UOP. Shock liver. ALT and AST elevated. INR 2.61.aware Blood pressure. Elevated. Nitroglycerin IV in place. Anemia. Stable. Electrolytes. In target. Anion gap acidosis. Likely from cardiopulmonary arrest, renal failure, and elevated lactic acid. Nutrition. Defer to primary. Medication review. Platelet count trending down, on zosyn and zyvox. Doses adjusted. lexi
--- NOTE | 2019-11-21 14:06 | ECHO REPORT ---
ORDER DATE: 11/20/2019 SUMMARY: 1. Limited 2-dimensional echocardiography performed. The study is technically difficult due to limited acoustic window quality. 2. The aortic valve is not well imaged but appears to open adequately. Mitral and tricuspid valves are without gross structural abnormality. Pulmonic valve is not seen. There is mild- to- moderate mitral regurgitation. The aortic root is grossly normal in size. 3. Mild left ventricular enlargement with normal wall thickness suggested. The estimated left ventricular ejection fraction approximately 20% in the setting of severe global hypokinesis. Left atrium, right atrium, and right ventricle are grossly normal in size. 4. No pericardial effusion. 5. Appearance of the inferior vena cava suggests normal central venous pressure. cc: Linwood Orta MD
[2019-11-21 14:16] LABS: ALLEN TEST YES; BE -9.1 mmoll (-3.0-3.0); BLOOD TYPE ARTERIAL; HCO3-(ACT) 17.7 mmoll (20.0-26.0); O2(CT) 20.3 mL/dL (15.0-23.0); O2HB 94.5 % (95.0-99.0); PCO2(98.6) 33 mmHg (35-45); PO2(98.6) 76 mmHg (60-100); SAMPLE BLOOD; SAO2 96.8 % (95.0-100.0); SRATE 26 BPM; THB 15.3 g/dL (11.5-17.4); TVOL 500 mL
[2019-11-21 14:17] LABS: MODALITY VENTILATOR
[2019-11-21 18:07] LABS: ALLEN TEST YES; BE -7.3 mmoll (-3.0-3.0); BLOOD TYPE ARTERIAL; HCO3-(ACT) 19.1 mmoll (20.0-26.0); METHB 0.9 % (0.0-1.5); PCO2(98.6) 32 mmHg (35-45); PO2(98.6) 70 mmHg (60-100); SAMPLE BLOOD; SAO2 95.1 % (95.0-100.0); SRATE 26 BPM; THB 15.3 g/dL (11.5-17.4); TVOL 500 mL; pH(98.6) 7.34 (7.35-7.45)
[2019-11-21 18:10] LABS: MODALITY VENTILATOR
[2019-11-21] MEDS: ZOSYN 2.25 GM in NS 50 ML IV SCH (18:15)
[2019-11-21 19:19] LABS: CALCIUM 7.4 mg/dL (8.8-10.2); CREATININE 4.3 mg/dL (0.7-1.2); POTASSIUM 3.6 mmol/L (3.5-5.1)
[2019-11-22] MEDS: LACRI-LUBE OPH OINT BOTH EYES SCH ×4 (00:21→18:02)
[2019-11-22] MEDS: SODIUM CHLORIDE 0.9% INJ SCH ×2 (00:22→12:01)
[2019-11-22] MEDS: PEPCID IV SCH ×2 (00:22→12:01)
[2019-11-22] MEDS: ATIVAN IV SCH ×5 (00:22→17:43)
--- NOTE | 2019-11-22 01:51 | PULMONOLOGY PROGRESS NOTE ---
DATE: 11/21/2019 SUBJECTIVE: The patient remains paralyzed. OBJECTIVE: Vital Signs: Temperature is 93 degrees. BP 148/104, respiratory rate 26, oxygen saturation 97%. HEENT: Pupils are equal but slow to react. Oropharynx appears clear but endotracheal tube in position. Neck: Supple. Chest: Reveals coarse rhonchi bilaterally. Cardiac: Regular rate. Normal S1, normal S2. Abdomen: Obese and soft. Extremities: Reveal trace edema. LABORATORIES: Sodium 136, potassium 3.7, chloride 101, bicarbonate 17, BUN 38, creatinine 3.8. Arterial blood gas reveals a pH of 7.30, pCO2 of 33, PO2 of 76. IMPRESSION: A 29-year-old with: 1. Influenza. 2. Status post cardiopulmonary arrest. 3. Morbid obesity. 4. Uncontrolled hypertension prior to admission. 5. Acute renal failure. 6. Possible aspiration associated with cardiopulmonary arrest. PLAN: 1. Continue full ventilatory support. PaO2 was greater than 100 and weaning of FiO2 is in progress. 2. Continue paralytic. 3. Continue current antibiotic regimen. 4. Complete hypothermia protocol. 5. Prognosis is guarded. It has been difficult to achieve hypothermia due to his underlying influenza and obesity. cc: Cali Robbins MD
[2019-11-22 01:56] LABS: BASO# 0.02 X1000 (0.0-0.2); BASO% 0.1 % (0.0-0.8); EOS# 0.01 X1000 (0.0-0.7); HEMATOCRIT 46.5 % (42.0-52.0); HEMOGLOBIN 15.6 g/dL (14.0-18.0); IMM GRAN# 0.06 X1000 (0.0-0.04); IMM GRAN% 0.3 % (0.0-0.5); LYMPH# 0.89 X1000 (1.2-3.4); LYMPH% 4.3 % (20.5-51.1); MCH 27.6 PG (27-31); MCHC 33.5 g/dL (33-37); MCV 82.2 FL (81-99); MONO# 0.46 X1000 (0.11-0.59); MONO% 2.2 % (1.7-9.3); MPV 11.3 FL (7.4-10.4); NEUT# 19.29 X1000 (1.4-6.5); NEUT% 93.1 % (42.2-75.2); PLT 99 X1000 (130-400); RBC 5.66 XMIL (4.7-6.1); RDW 14.5 % (11.5-14.5); WBC 20.73 X1000 (4.8-10.8)
[2019-11-22 02:14] LABS: INR 2.12; PROTIME 24.3 Seconds (11.0-16.0)
[2019-11-22 02:21] LABS: PHOSPHORUS 6.5 mg/dL (2.7-4.5)
[2019-11-22] MEDS: ZOSYN 2.25 GM in NS 50 ML IV SCH ×3 (04:25→18:34)
[2019-11-22 04:58] LABS: ALLEN TEST YES; BE -8.3 mmoll (-3.0-3.0); BLOOD TYPE ARTERIAL; HCO3-(ACT) 18.4 mmoll (20.0-26.0); METHB 0.7 % (0.0-1.5); O2HB 95.8 % (95.0-99.0); PCO2(98.6) 31 mmHg (35-45); PO2(98.6) 90 mmHg (60-100); SAMPLE BLOOD; SAO2 97.9 % (95.0-100.0); SRATE 26 BPM; THB 14.8 g/dL (11.5-17.4); TVOL 500 mL; pH(98.6) 7.33 (7.35-7.45)
[2019-11-22 04:59] LABS: MODALITY VENTILATOR
--- NOTE | 2019-11-22 05:58 | Diag Imaging Result Doc PS360 ---
EXAM: CHEST-PORTABLE HISTORY: respiratory failure TECHNIQUE: Single view COMPARISON: 11/21/2019 FINDINGS: No change in the endotracheal tube or nasogastric tube. Right upper lung infiltrates are less pronounced. Lower lung infiltrates persist. There is mild cardiomegaly and there is likely a small left pleural effusion. IMPRESSION: Mild interval improvement Electronically signed by Esteban Gonzalez 11/22/2019 5:55 AM
[2019-11-22] MEDS: NIMBEX 80 MG in NS 160 ML IV SCH (08:19)
--- NOTE | 2019-11-22 08:31 | CARDIOLOGY PROGRESS NOTE ---
DATE: 11/22/2019 CHIEF COMPLAINT: Shortness of breath. SUBJECTIVE: Mr. Coelho remains still on the hypothermic protocol. He is being rewarmed now. He is still paralyzed. At this time, he is getting IV nitroglycerin, fentanyl, and a paralytic agent. OBJECTIVE: Vital signs: Blood pressure is 148/105, temperature 93.8, pulse 82, respirations 26. The patient is paralyzed, unresponsive. HEENT: No obvious abnormality. He is orotracheally intubated. Chest: Diminished breath sounds diffusely. Heart sounds are regular and rhythmic. I do not hear gallop today. Abdomen is soft. Bowel sounds diminished. Extremities showed palpable pulses radial and dorsalis pedis bilaterally. Neurologic: As I said, he is paralyzed. DIAGNOSTIC DATA: His phosphorus level today is 6.5. His most recent BUN and creatinine from yesterday are 39 at 6 p.m. and 3.6 at 6 p.m. The results from this morning are pending. His lipase is down to 25, amylase is down to 793 units. A CMP from this morning is pending. His blood gases on an FiO2 of 0.4 are better. The pO2 is 90, pH is 7.33, pCO2 is 31. The alveolar arterial gradient now is down to 156. His chest x-ray is clearing up. IMPRESSION: 1. The patient presented with acute hypoxemic respiratory failure, pulmonary edema, a combination of cardiogenic and noncardiogenic complicated with influenza type A. 2. Acute systolic heart failure, probably on top of chronic LV systolic dysfunction due to untreated hypertension or a different type of cardiomyopathy. 3. Reported sleep apnea syndrome or likely to have sleep apnea syndrome, per 's report. RECOMMENDATIONS: At this time, I will request a followup echocardiogram, limited, to reassess his LV function. We will continue to monitor his course. cc: Richard Lomeli MD [facility] CENTERShantal
[2019-11-22] MEDS: HEPARIN SUBQ SCH ×2 (09:23→21:04)
[2019-11-22] MEDS: TAMIFLU PO SCH (09:23)
[2019-11-22 09:54] LABS: CALCIUM 7.7 mg/dL (8.8-10.2); CREATININE 4.5 mg/dL (0.7-1.2); POTASSIUM 3.9 mmol/L (3.5-5.1)
[2019-11-22] MEDS: ZYVOX 600 MG/D5W 600 MG/300 ML IVPB IV SCH (10:02)
[2019-11-22] MEDS: XOPENEX NEB INH SCH ×3 (10:12→21:59)
[2019-11-22 10:35] LABS: INR 1.92; PROTIME 22.5 Seconds (11.0-16.0)
[2019-11-22] MEDS ORDERED: MAGNESIUM SULFATE 2 GM/S.W.I. 2 GM/50 ML IVPB IV ONE (11:28)
[2019-11-22 11:39] LABS: BASO# 0.01 X1000 (0.0-0.2); BASO% 0.1 % (0.0-0.8); HEMATOCRIT 43.5 % (42.0-52.0); HEMOGLOBIN 15.1 g/dL (14.0-18.0); IMM GRAN# 0.05 X1000 (0.0-0.04); IMM GRAN% 0.3 % (0.0-0.5); LYMPH# 0.61 X1000 (1.2-3.4); LYMPH% 3.6 % (20.5-51.1); MCH 27.5 PG (27-31); MCHC 34.7 g/dL (33-37); MCV 79.1 FL (81-99); MONO% 1.8 % (1.7-9.3); NEUT# 15.95 X1000 (1.4-6.5); NEUT% 94.2 % (42.2-75.2); PLT 105 X1000 (130-400); RDW 14.4 % (11.5-14.5); WBC 16.92 X1000 (4.8-10.8)
[2019-11-22 11:48] LABS: BANDS 9 % (0-1); LYMPHS 2 % (21-51); SEGS 89 % (42-75); TOXIC GRANULATION 1+
[2019-11-22] MEDS: NS 500 ML IV SCH (12:01)
[2019-11-22 12:19] LABS: MAGNESIUM 1.9 mg/dL (1.5-2.7)
--- NOTE | 2019-11-22 13:47 | PROGRESS NOTE ---
DATE: 11/22/2019 SUBJECTIVE: I have seen and examined Mr. Coelho today. At the bedside was the and the mom. Per the nursing staff, night was uneventful. Rewarming started some time last night. He is still going through the rewarming phase. OBJECTIVE: Vital signs: Blood pressure is 167/117, pulse of 89, respirations 16, temperature is 93.8 degrees. General exam: Mr. Coelho is a 29-year-old gentleman. He is in bed. Morbidly obese. BMI is 47.4. Currently intubated, sedated and paralyzed. HEENT: Mucosa is pink and moist. Anicteric. Acyanotic. Neck: Supple. Chest: Good air entry bilateral. A few crackles and transmitted sounds from the ventilator. Cardiovascular: Regular rate and rhythm. No murmurs, no rubs, no gallops. GI/Abdomen: Soft. Bowel sounds present. Extremities: No pedal edema. Central nervous system: Patient is currently paralyzed. INTAKE/OUTPUT: Urine output was 985. He is currently negative balance of 240 during the hospital course. LABORATORY DATA: WBC is 16.92, hemoglobin is 15.1, platelet count of 105. Chemistry is also reviewed. Creatinine is 4.5. ProBNP has come down to 530. DIAGNOSTIC STUDIES: A chest x-ray this morning shows mild interval improvement. CURRENT MEDICATIONS: Have all been reviewed. No changes. The bedside echocardiogram which was done on admission showed an ejection fraction of 20% in the setting of severe global hypokinesis. ASSESSMENT: 1. Acute hypoxemic respiratory failure on presentation leading to cardiopulmonary arrest. The patient is currently going through the hypothermic protocol. He is on the rewarming phase. 2. Acute respiratory distress syndrome. The patient is intubated. Pulmonary Medicine is on board. 3. Severe uncontrolled hypertension on presentation. Questionable hypertensive emergency. 4. Influenza pneumonia. Patient is on Tamiflu. Change current dose to renal dose. 5. Acute renal failure secondary to nonoliguric acute tubular necrosis. The patient maintains adequate urine. Creatinine, however, has gone up slightly today. Nephrology is on board. 6. Transaminitis secondary to shock liver. 7. Elevated troponin presumably from type 2 myocardial infarction. 8. Severe systolic dysfunction with ejection fraction of 20%. 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 9. Obstructive sleep apnea. PLAN: So, in general, I think Mr. Coelho remains very critical, but stable. He is currently going through the rewarming phase of the hypothermia protocol. We are going to continue with the ventilator support, antimicrobials and antiviral. The patient is on DVT prophylaxis, as well as GI prophylaxis. Antibiotics have all been renally dosed. I will also change the Tamiflu to renal dose. I have discussed my findings and plan with the family (the and the mother, who were both at the bedside at the time of the encounter). CRITICAL TIME SPENT: 45 minutes. cc: Osvaldo Santa MD MTDD
--- NOTE | 2019-11-22 15:14 | ECHO REPORT ---
ORDER DATE: 11/22/2019 INDICATION: Respiratory failure, CHF. FINDINGS: This is a full study. 1. Right atrium appears enlarged. 2. Mild tricuspid regurgitation. RV systolic pressure of 46. 3. The right ventricle appears to have reduced RV systolic function. It does appear somewhat enlarged, difficult visualization. 4. No significant pulmonic insufficiency. 5. Severe left atrial enlargement with a volume index of 66. 6. No mitral prolapse. Mild mitral regurgitation. 7. Severely dilated left ventricle with an end-diastolic dimension of 7.6 cm. Mild left ventricular hypertrophy with a posterior and interventricular septal wall thickness of 1.3 cm each. Severe reduction in LV systolic function with an estimated EF of 15 to 20 percent. Severe global hypokinesis. Optison echo contrast was used. No evidence of LV clot. 8. Aortic valve opens well. Mild insufficiency. The valve is trileaflet. It is not stenotic. 9. Aorta appears normal in visualized segments. 10. There is a suggestion of a small posterior pericardial effusion with no evidence of tamponade physiology. cc: MD Richard Kevin MD
[2019-11-22 15:31] LABS: ALB/GLOB RATIO 0.8; ALBUMIN 2.7 g/dL (3.5-5.0); CALCIUM 7.5 mg/dL (8.8-10.2); CREATININE 4.8 mg/dL (0.7-1.2); POTASSIUM 3.9 mmol/L (3.5-5.1); TOTAL BILIRUBIN 0.95 mg/dL (0.20-1.00)
[2019-11-22] MEDS: NITROGLYCERIN 50 MG/D5W 50 MG/250 ML IV.SOLN IV SCH (16:37)
--- NOTE | 2019-11-22 20:14 | NEPHROLOGY PROGRESS NOTE ---
DATE: 11/22/2019 SUBJECTIVE: He is still on the hypothermia protocol. He is sedated. OBJECTIVE: Neck veins are not distended. Heart is regular. Lungs are equal. No crackles. Abdomen is benign. Extremities 2+ edema. No clubbing or cyanosis. IMPRESSION: Acute kidney injury. BUN and creatinine andriy modestly over the last 12 hours. Urine output is acceptable. He is at high risk for requiring renal replacement therapy but he does not currently meet dialysis criteria. We will follow closely. cc: Caesar Roland MD
[2019-11-22] MEDS ORDERED: TAMIFLU PO SCH (21:00)
[2019-11-22] MEDS: TAMIFLU LIQUID PO SCH (21:05)
[2019-11-22] MEDS: COREG PO SCH (21:05)
[2019-11-22] MEDS: FENTANYL 1,000 MICROGM in NS 80 ML IV SCH (21:05)
[2019-11-22] MEDS: NS NEB INH SCH (22:00)
--- NOTE | 2019-11-22 23:55 | PROVIDER PROGRESS NOTE ---
Progress Note Dr. Kruse Progress Note/Pulmonary and or critical care Subjective: The patient stays intubated. He is still on hypothermia protocol. No family at the bedside. Input was appreciated from Dr. Santa and other teams on the case. Objective: Vital Signs: 94.6, WA 79, RR 26, BP 148/100 and SaO2 99% on AC 26, 40%, 500, 10. I/O: +212 ml. Physical Examination: General: Intubated. Morbidly obese. No acute distress noted. On hypothermia protocol. HEENT: Normocephalic. Trachea midline. ET tube in place. Mucosa pink and moist. Chest: Mechanically ventilated. Symmetrical excursion. Clear to auscultation bilaterally. CVS: S1 and S2 appreciated. Abdomen: Soft. Non-distended. Obese. Normoactive bowel sounds noted. Extremities: BLE trace edema. No cyanosis. No clubbing. Neuro: Sedated. Labs and Radiology: Laboratory Results 11/22/19 11/22/19 11/22/19 01:10 01:40 01:40 WBC 20.73 H RBC 5.66 Hgb 15.6 Hct 46.5 MCV 82.2 MCH 27.6 MCHC 33.5 RDW Std Deviation 14.5 Plt Count 99 L MPV 11.3 H Immature Gran % (Auto) 0.3 Neut % (Auto) 93.1 H Lymph % (Auto) 4.3 L Davidson % (Auto) 2.2 Eos % (Auto) 0.0 Baso % (Auto) 0.1 Immature Gran # (Auto) 0.06 H Neut # (Auto) 19.29 H Lymph # (Auto) 0.89 L Davidson # (Auto) 0.46 Eos # (Auto) 0.01 Baso # (Auto) 0.02 Segmented Neutrophils Not Reportable Band Neutrophils Lymphocytes Toxic Granulation PT INR Specimen Type Sample Site pH pCO2 pO2 HCO3 Base Excess Oxyhemoglobin ABG O2 Sat (Calculated) ABG O2 Saturation ABG Carboxyhemoglobin ABG Methemoglobin Abhijit Test A-a O2 Difference Total Hemoglobin Lactate Blood Gas Modality Vent Mode Spontaneous Rate FiO2 % Tidal Volume PEEP Sodium 139 Potassium 3.9 Chloride 101 Carbon Dioxide 13 L Anion Gap 25 BUN 45 H Creatinine 4.5 H Estimated GFR/1.73 m2 19 BUN/Creatinine Ratio 10 Glucose 102 Calculated Osmolality 289 Calcium 7.7 L Phosphorus 6.5 H Magnesium 2.0 Total Bilirubin AST ALT Alkaline Phosphatase Kqa-H-Jdodabmpcoe Pept Total Protein Albumin Globulin Albumin/Globulin Ratio Amylase 793 H Lipase 25 11/22/19 11/22/19 11/22/19 01:40 04:48 10:10 WBC 16.92 H RBC 5.50 Hgb 15.1 Hct 43.5 MCV 79.1 L MCH 27.5 MCHC 34.7 RDW Std Deviation 14.4 Plt Count 105 L MPV 12.0 H Immature Gran % (Auto) 0.3 Neut % (Auto) 94.2 H Lymph % (Auto) 3.6 L Davidson % (Auto) 1.8 Eos % (Auto) 0.0 Baso % (Auto) 0.1 Immature Gran # (Auto) 0.05 H Neut # (Auto) 15.95 H Lymph # (Auto) 0.61 L Davidson # (Auto) 0.30 Eos # (Auto) 0.00 Baso # (Auto) 0.01 Segmented Neutrophils 89 H Band Neutrophils 9 H Lymphocytes 2 L Toxic Granulation 1+ PT 24.3 H INR 2.12 Specimen Type ARTERIAL Sample Site R RADIAL pH 7.33 L pCO2 31 L pO2 90 HCO3 18.4 L Base Excess -8.3 L Oxyhemoglobin 95.8 ABG O2 Sat (Calculated) 20.0 ABG O2 Saturation 97.9 ABG Carboxyhemoglobin 1.50 ABG Methemoglobin 0.7 Abhijit Test YES A-a O2 Difference 156.0 Total Hemoglobin 14.8 Lactate 2.80 H Blood Gas Modality VENTILATOR Vent Mode A/C Spontaneous Rate 26 FiO2 % 40.0 Tidal Volume 500 PEEP 10.0 Sodium Potassium Chloride Carbon Dioxide Anion Gap BUN Creatinine Estimated GFR/1.73 m2 BUN/Creatinine Ratio Glucose Calculated Osmolality Calcium Phosphorus Magnesium Total Bilirubin AST ALT Alkaline Phosphatase Hns-K-Nmblymdmjaf Pept Total Protein Albumin Globulin Albumin/Globulin Ratio Amylase Lipase 11/22/19 11/22/19 11/22/19 10:10 10:10 10:10 WBC RBC Hgb Hct MCV MCH MCHC RDW Std Deviation Plt Count MPV Immature Gran % (Auto) Neut % (Auto) Lymph % (Auto) Davidson % (Auto) Eos % (Auto) Baso % (Auto) Immature Gran # (Auto) Neut # (Auto) Lymph # (Auto) Davidson # (Auto) Eos # (Auto) Baso # (Auto) Segmented Neutrophils Band Neutrophils Lymphocytes Toxic Granulation PT 22.5 H INR 1.92 Specimen Type Sample Site pH pCO2 pO2 HCO3 Base Excess Oxyhemoglobin ABG O2 Sat (Calculated) ABG O2 Saturation ABG Carboxyhemoglobin ABG Methemoglobin Abhijit Test A-a O2 Difference Total Hemoglobin Lactate Blood Gas Modality Vent Mode Spontaneous Rate FiO2 % Tidal Volume PEEP Sodium 136 Potassium 3.9 Chloride 99 Carbon Dioxide 14 L Anion Gap 23 BUN 50 H Creatinine 4.8 H Estimated GFR/1.73 m2 17 BUN/Creatinine Ratio 10 Glucose 139 H Calculated Osmolality 288 Calcium 7.5 L Phosphorus Magnesium Total Bilirubin 0.95 AST 1189 H ALT 2194 H Alkaline Phosphatase 97 Dhp-H-Mgeoauroqpg Pept 530 H Total Protein 6.0 L Albumin 2.7 L Globulin 3.3 Albumin/Globulin Ratio 0.8 Amylase Lipase 11/22/19 11/22/19 11:20 11:38 WBC RBC Hgb Hct MCV MCH MCHC RDW Std Deviation Plt Count MPV Immature Gran % (Auto) Neut % (Auto) Lymph % (Auto) Davidson % (Auto) Eos % (Auto) Baso % (Auto) Immature Gran # (Auto) Neut # (Auto) Lymph # (Auto) Davidson # (Auto) Eos # (Auto) Baso # (Auto) Segmented Neutrophils Band Neutrophils Lymphocytes Toxic Granulation PT INR Specimen Type Sample Site pH pCO2 pO2 HCO3 Base Excess Oxyhemoglobin ABG O2 Sat (Calculated) ABG O2 Saturation ABG Carboxyhemoglobin ABG Methemoglobin Abhijit Test A-a O2 Difference Total Hemoglobin Lactate Blood Gas Modality Vent Mode Spontaneous Rate FiO2 % Tidal Volume PEEP Sodium Potassium Chloride Carbon Dioxide Anion Gap BUN Creatinine Estimated GFR/1.73 m2 BUN/Creatinine Ratio Glucose Calculated Osmolality Calcium Phosphorus Cancelled 7.0 H Magnesium Cancelled 1.9 Total Bilirubin AST ALT Alkaline Phosphatase Bal-T-Gbndmcxfrwn Pept Total Protein Albumin Globulin Albumin/Globulin Ratio Amylase Cancelled 553 H Lipase Cancelled 18 Assessment: Acute respiratory failure. Influenza. s/p cardiopulmonary arrest. Morbid obesity with suspected THERESE. Elevated LFTs secondary to shock liver. Acute systolic heart failure. Dr. Warren on board. Acute kidney injury. Worsened. Dr. Roland on board. Prognosis guarded. Plan: Continue ventilatory support. We checked Ventilation and titrated to the patients needs for clinical protocols. We will keep closely monitoring patients clinical response. We titrated Nimbex and Fentanyl to the patients needs. We will keep closely monitoring patients clinical response. Continue weaning Nitroglycerin drip per clinical protocols. Continue antibiotic Zosyn. Continue Tamiflu on renal dose. Continue bronchodilators. Continue GI and DVT prophylaxis. Total evaluation time in minutes: 34.
[2019-11-23 01:51] LABS: BASO# 0.02 X1000 (0.0-0.2); BASO% 0.1 % (0.0-0.8); HEMATOCRIT 40.2 % (42.0-52.0); HEMOGLOBIN 14.1 g/dL (14.0-18.0); IMM GRAN# 0.04 X1000 (0.0-0.04); IMM GRAN% 0.3 % (0.0-0.5); LYMPH# 0.89 X1000 (1.2-3.4); LYMPH% 5.8 % (20.5-51.1); MCH 27.9 PG (27-31); MCHC 35.1 g/dL (33-37); MCV 79.4 FL (81-99); MONO# 0.65 X1000 (0.11-0.59); MONO% 4.3 % (1.7-9.3); MPV 12.2 FL (7.4-10.4); NEUT# 13.69 X1000 (1.4-6.5); NEUT% 89.5 % (42.2-75.2); PLT 118 X1000 (130-400); RBC 5.06 XMIL (4.7-6.1); RDW 14.6 % (11.5-14.5); WBC 15.29 X1000 (4.8-10.8)
[2019-11-23 01:53] LABS: INR 1.31; PROTIME 16.5 Seconds (11.0-16.0)
[2019-11-23 01:58] LABS: MAGNESIUM 1.9 mg/dL (1.5-2.7); PHOSPHORUS 6.7 mg/dL (2.7-4.5)
[2019-11-23] MEDS: ZOSYN 2.25 GM in NS 50 ML IV SCH ×3 (02:35→18:27)
[2019-11-23] MEDS: SODIUM CHLORIDE 0.9% INJ SCH ×4 (02:35→21:01)
[2019-11-23] MEDS: PEPCID IV SCH ×3 (02:35→21:00)
[2019-11-23 05:06] LABS: ALLEN TEST YES; BLOOD TYPE ARTERIAL; HCO3-(ACT) 20.1 mmoll (20.0-26.0); METHB 0.8 % (0.0-1.5); O2(CT) 22.5 mL/dL (15.0-23.0); O2HB 94.1 % (95.0-99.0); PCO2(98.6) 31 mmHg (35-45); PO2(98.6) 79 mmHg (60-100); SAMPLE BLOOD; SAO2 96.5 % (95.0-100.0); SRATE 26 BPM; TVOL 500 mL; pH(98.6) 7.37 (7.35-7.45)
[2019-11-23 05:07] LABS: MODALITY VENTILATOR
[2019-11-23 05:42] LABS: HEMATOCRIT 40.2 % (42.0-52.0); HEMOGLOBIN 14.1 g/dL (14.0-18.0); MCH 27.9 PG (27-31); MCHC 35.1 g/dL (33-37); MCV 79.6 FL (81-99); MPV 12.6 FL (7.4-10.4); RBC 5.05 XMIL (4.7-6.1); RDW 14.8 % (11.5-14.5); WBC 15.54 X1000 (4.8-10.8)
[2019-11-23] MEDS: OFIRMEV 1000 MG/ISOTONIC SOLN 1,000 MG/100 ML BOTTLE IV PRN (06:01)
[2019-11-23 06:12] LABS: ALB/GLOB RATIO 0.9; ALBUMIN 2.5 g/dL (3.5-5.0); CALCIUM 7.2 mg/dL (8.8-10.2); CREATININE 6.4 mg/dL (0.7-1.2); POTASSIUM 4.1 mmol/L (3.5-5.1); TOTAL BILIRUBIN 0.83 mg/dL (0.20-1.00); TOTAL PROTEIN 5.3 g/dL (6.3-8.3)
--- NOTE | 2019-11-23 07:02 | Diag Imaging Result Doc PS360 ---
EXAM: CHEST-PORTABLE 11/23/2019 HISTORY: respiratory failure TECHNIQUE: AP portable at 0538 COMMENT: There is an endotracheal tube with its tip at thoracic inlet. There is retrocardiac opacity and ill-defined opacity elsewhere in the lungs. The inspiration is less optimal than on 11/22/2019 but otherwise are has been no significant change. IMPRESSION: Pulmonary edema and/or pneumonia particularly in the left lower lobe. Electronically signed by Roverto Mcneil 11/23/2019 6:59 AM
[2019-11-23] MEDS: XOPENEX NEB INH SCH ×3 (08:21→21:36)
[2019-11-23] MEDS: TAMIFLU LIQUID PO SCH ×2 (09:34→21:01)
[2019-11-23] MEDS: HEPARIN SUBQ SCH ×2 (09:34→21:00)
[2019-11-23] MEDS: COREG PO SCH ×2 (09:34→21:01)
[2019-11-23] MEDS: ZYVOX 600 MG/D5W 600 MG/300 ML IVPB IV SCH (11:08)
[2019-11-23] MEDS: NS 500 ML IV SCH (12:15)
--- NOTE | 2019-11-23 13:56 | PROGRESS NOTE ---
DATE: 11/23/2019 INTERVAL HISTORY: Patient remains paralyzed, sedated and intubated. O2 requirements fairly modest at this time. Blood pressure pretty stable at this point. Discussed current situation with family. No acute events overnight. REVIEW OF SYSTEMS: Unable to obtain secondary to patient mental status. LABS: WBC 15.5, hemoglobin 14.1, hematocrit 40.2, platelets 116,000. INR 1.3. ABG with pH 7.37, pCO2 31, PO2 79 on ventilator with 30% oxygen. Sodium 139, potassium 4.1, bicarb 18, BUN 62, creatinine 6.4, AST 406, ALT 1449. VITALS: T-max 100.2 degrees, pulse 93, respirations 26, blood pressure 138/69, O2 saturation 95% on ventilator. PHYSICAL EXAMINATION: General: No acute distress, intubated and sedated. HEENT: Normocephalic, atraumatic. Moist mucous membranes. Cardiovascular: Regular rate and rhythm. No murmurs noted. Pulmonary: Scattered rhonchi throughout. Good air entry. Abdomen: Soft, nontender. Bowel sounds present. Extremities: Peripheral pulses intact. No clubbing, cyanosis, or edema. Neurologic: Patient paralyzed. Psychiatric: Patient intubated, sedated. Skin: No new rashes or lesions identified. ASSESSMENT AND PLAN: 1. Acute hypoxemic respiratory failure, cardiopulmonary arrest. The patient is status post hypothermia protocol. Remains intubated and paralyzed. Feeding underlying issues as below. 2. Acute systolic congestive heart failure, acute respiratory distress syndrome. Ejection fraction of 20% favored to be acute cardiomyopathy related to acute illness, although background of long-term heart disease from blood pressure could not entirely be ruled out. Still with diffuse opacities in the lungs on x-ray. He remains on antibiotics with Zosyn and Zyvox to treat a possible pneumonia component. He did have significant fever on admission and some slightly elevated temperatures overnight. Leukocytosis appears to be improving. Patient also influenza positive. Continue Tamiflu with renal dosing. Oxygen requirements do appear to be improving overall although his x-ray is not significantly improved so he clinically looks to be headed in the right direction. Continue treatment and monitor. 3. Acute kidney injury with likely acute tubular necrosis. Creatinine trending up rapidly. No urgent indication for dialysis but may need it in the next 24 to 48 hours if his kidney function does not begin to improve. Continue to monitor urine output. 4. Transaminitis. Likely shock liver. Appears to be improving. 5. Elevated troponin. Favor demand ischemia/type 2 myocardial infarction. Monitoring. 6. Obstructive sleep apnea and morbid obesity noted.
[2019-11-23] MEDS ORDERED: NS 1,000 ML IV SCH (15:15)
--- NOTE | 2019-11-23 18:13 | PROVIDER PROGRESS NOTE ---
Progress Note Dr. Kruse Progress Note/Pulmonary and or critical care Subjective: The patient stays intubated. He has been on low grade fever with tachycardia and tachypnea since last night. He is on fentanyl drip and nitro drip at this time. at the bedside. Input was appreciated from Dr. Gutierrez and other teams on the case. Objective: Vital Signs: 100.2 (persistent low grade fever since midnight), [place] 92, RR 26, BP 131/77 and SaO2 95% on AC 26, 30%, 500, 5. I/O: -63 ml. Physical Examination: General: Intubated. Morbidly obese. No acute distress noted. On hypothermia protocol. HEENT: Normocephalic. Trachea midline. ET tube in place. Mucosa pink and moist. Chest: Mechanically ventilated. Symmetrical excursion. Clear to auscultation bilaterally. CVS: S1 and S2 appreciated. Abdomen: Soft. Non-distended. Obese. Normoactive bowel sounds noted. Extremities: BLE trace edema. No cyanosis. No clubbing. Neuro: Sedated. Labs and Radiology: Laboratory Results 11/23/19 11/23/19 11/23/19 01:00 01:00 01:00 WBC 15.29 H RBC 5.06 Hgb 14.1 Hct 40.2 L MCV 79.4 L MCH 27.9 MCHC 35.1 RDW Std Deviation 14.6 H Plt Count 118 L MPV 12.2 H Immature Gran % (Auto) 0.3 Neut % (Auto) 89.5 H Lymph % (Auto) 5.8 L Haakon % (Auto) 4.3 Eos % (Auto) 0.0 Baso % (Auto) 0.1 Immature Gran # (Auto) 0.04 Neut # (Auto) 13.69 H Lymph # (Auto) 0.89 L Haakon # (Auto) 0.65 H Eos # (Auto) 0.00 Baso # (Auto) 0.02 PT 16.5 H INR 1.31 D Specimen Type Sample Site pH pCO2 pO2 HCO3 Base Excess Oxyhemoglobin ABG O2 Sat (Calculated) ABG O2 Saturation ABG Carboxyhemoglobin ABG Methemoglobin Abhijit Test A-a O2 Difference Total Hemoglobin Lactate Blood Gas Modality Vent Mode Spontaneous Rate FiO2 % Tidal Volume PEEP Sodium Potassium Chloride Carbon Dioxide Anion Gap BUN Creatinine Estimated GFR/1.73 m2 BUN/Creatinine Ratio Glucose Calculated Osmolality Calcium Phosphorus 6.7 H Magnesium 1.9 Total Bilirubin AST ALT Alkaline Phosphatase Total Protein Albumin Globulin Albumin/Globulin Ratio Amylase 287 H Lipase 37 11/23/19 11/23/19 11/23/19 04:45 04:45 04:56 WBC 15.54 H RBC 5.05 Hgb 14.1 Hct 40.2 L MCV 79.6 L MCH 27.9 MCHC 35.1 RDW Std Deviation 14.8 H Plt Count 116 L MPV 12.6 H Immature Gran % (Auto) Neut % (Auto) Lymph % (Auto) Haakon % (Auto) Eos % (Auto) Baso % (Auto) Immature Gran # (Auto) Neut # (Auto) Lymph # (Auto) Haakon # (Auto) Eos # (Auto) Baso # (Auto) PT INR Specimen Type ARTERIAL Sample Site R RADIAL pH 7.37 pCO2 31 L pO2 79 HCO3 20.1 Base Excess -6.0 L Oxyhemoglobin 94.1 L ABG O2 Sat (Calculated) 22.5 ABG O2 Saturation 96.5 ABG Carboxyhemoglobin 1.70 ABG Methemoglobin 0.8 Abhijit Test YES A-a O2 Difference 96.0 Total Hemoglobin 17.0 Lactate 2.20 Blood Gas Modality VENTILATOR Vent Mode A/C Spontaneous Rate 26 FiO2 % 30.0 Tidal Volume 500 PEEP 10.0 Sodium 139 Potassium 4.1 Chloride 100 Carbon Dioxide 18 L Anion Gap 21 BUN 62 H Creatinine 6.4 H Estimated GFR/1.73 m2 12 BUN/Creatinine Ratio 10 Glucose 103 Calculated Osmolality 295 Calcium 7.2 L Phosphorus Magnesium Total Bilirubin 0.83 AST 406 H ALT 1449 H Alkaline Phosphatase 87 Total Protein 5.3 L Albumin 2.5 L Globulin 2.8 Albumin/Globulin Ratio 0.9 Amylase Lipase Assessment: Acute respiratory failure. Influenza. s/p cardiopulmonary arrest. Pulmonary edema vs. pneumonia. Morbid obesity with suspected THERESE. Elevated LFTs secondary to shock liver. Improving. Acute systolic heart failure. Dr. Warren on board. Acute kidney injury. Worsened. Dr. Roland on board. Prognosis guarded. Plan: Continue ventilatory support. We checked Ventilation and titrated to the patients needs per clinical protocols. We will keep closely monitoring patients clinical response. We titrated Nimbex and Fentanyl to the patients needs per clinical protocols. We will keep closely monitoring patients clinical response. Continue weaning Nitro drip per clinical protocols. We will keep closely monitoring patients blood pressure. Continue antibiotic Zosyn. Continue Tamiflu on renal dose. Continue bronchodilators. Continue GI and DVT prophylaxis. Total evaluation time in minutes: 33.
[2019-11-23] MEDS: FENTANYL 1,000 MICROGM in NS 80 ML IV SCH (21:13)
[2019-11-23] MEDS: NS NEB INH SCH (21:37)
[2019-11-24 04:33] LABS: ALLEN TEST YES; BE -6.6 mmoll (-3.0-3.0); BLOOD TYPE ARTERIAL; HCO3-(ACT) 19.7 mmoll (20.0-26.0); METHB 1.3 % (0.0-1.5); O2(CT) 18.2 mL/dL (15.0-23.0); O2HB 95.3 % (95.0-99.0); PCO2(98.6) 35 mmHg (35-45); PO2(98.6) 103 mmHg (60-100); SAMPLE BLOOD; SAO2 98.5 % (95.0-100.0); SRATE 26 BPM; THB 13.5 g/dL (11.5-17.4); TVOL 500 mL; pH(98.6) 7.33 (7.35-7.45)
[2019-11-24 04:34] LABS: MODALITY VENTILATOR
[2019-11-24 06:10] LABS: HEMATOCRIT 38.6 % (42.0-52.0); MCH 27.4 PG (27-31); MCHC 33.7 g/dL (33-37); MCV 81.4 FL (81-99); MPV 12.1 FL (7.4-10.4); RBC 4.74 XMIL (4.7-6.1); RDW 14.9 % (11.5-14.5); WBC 12.75 X1000 (4.8-10.8)
[2019-11-24] MEDS: SODIUM CHLORIDE 0.9% INJ SCH ×3 (06:18→12:30)
[2019-11-24] MEDS: ZOSYN 2.25 GM in NS 50 ML IV SCH ×3 (06:28→18:29)
[2019-11-24 06:52] LABS: ALB/GLOB RATIO 0.9; ALBUMIN 2.7 g/dL (3.5-5.0); CALCIUM 7.4 mg/dL (8.8-10.2); CREATININE 9.2 mg/dL (0.7-1.2); POTASSIUM 4.3 mmol/L (3.5-5.1); TOTAL BILIRUBIN 0.5 mg/dL (0.20-1.00); TOTAL PROTEIN 5.7 g/dL (6.3-8.3)
--- NOTE | 2019-11-24 07:13 | Diag Imaging Result Doc PS360 ---
EXAM: CHEST-PORTABLE 11/24/2019 HISTORY: respiratory failure TECHNIQUE: AP portable at 0529 COMMENT: There is an endotracheal tube with its tip at thoracic inlet. There is alveolar opacity in both lung bases particularly the left lower lobe. This was also the case on 11/23/2019. IMPRESSION: Bilateral lower lobe pneumonia versus pulmonary edema. Electronically signed by Roverto Mcneil 11/24/2019 7:11 AM
[2019-11-24] MEDS: XOPENEX NEB INH SCH ×3 (08:33→21:42)
--- NOTE | 2019-11-24 09:01 | NEPHROLOGY PROGRESS NOTE ---
DATE: 11/23/2019 SUBJECTIVE: Remains sedated, on the ventilator. OBJECTIVE: Blood pressure 150/88, heart rate 120, respirations 26. T-max 100.2 degrees. Intake 1 L. Output 1.1 L. General: No acute distress. Sedated, on the ventilator. Pupils are equal. Neck: Neck veins are not visible. Trachea is midline. Heart: Regular. Tachycardic. No gallops. Lungs: Equal. No crackles. Abdomen: Soft, nontender. Bowel sounds are present. Extremities: Minimal edema. No clubbing or cyanosis. IMPRESSION: Acute kidney injury. Ischemic acute tubular necrosis secondary to cardiopulmonary arrest. He does not meet criteria for dialysis today but likely will within the next 24-48 hours. Volume status is acceptable. Electrolytes and acid-base are acceptable. cc: Caesar Roland MD
[2019-11-24] MEDS: HEPARIN SUBQ SCH ×2 (09:57→19:59)
[2019-11-24] MEDS: PEPCID IV SCH ×2 (09:57→19:59)
[2019-11-24] MEDS: COREG PO SCH ×2 (09:57→19:59)
[2019-11-24] MEDS: ZYVOX 600 MG/D5W 600 MG/300 ML IVPB IV SCH (11:00)
[2019-11-24] MEDS: NS 500 ML IV SCH (12:30)
--- NOTE | 2019-11-24 14:47 | PROVIDER PROGRESS NOTE ---
Progress Note Dr. Kruse Progress Note/Pulmonary and or critical care Subjective: The patient remains intubated on Nitro and Fentanyl drip. His last fever was at 1208 yesterday. He still has tachycardia and tachypnea with uncontrolled hypertension. He also has persistent AG metabolic acidosis. Patient's is at the bedside. Input was appreciated from Dr. Gutierrez and other teams on the case. Objective: Vital Signs: 99.3 (last fever @ 1208 yesterday), [place] 110, RR 26, BP 146/88 and SaO2 97% on AC 26, 30%, 500, 5. I/O: -92 ml. Physical Examination: General: Intubated. Morbidly obese. No acute distress noted. On hypothermia protocol. HEENT: Normocephalic. Trachea midline. ET tube in place. Mucosa pink and moist. Chest: Mechanically ventilated. Symmetrical excursion. Clear to auscultation bilaterally. CVS: S1 and S2 appreciated. Abdomen: Soft. Non-distended. Obese. Normoactive bowel sounds noted. Extremities: BLE trace edema. No cyanosis. No clubbing. Neuro: Sedated. Labs and Radiology: Laboratory Results 11/24/19 11/24/19 11/24/19 04:20 04:20 04:23 WBC 12.75 H RBC 4.74 Hgb 13.0 L Hct 38.6 L MCV 81.4 MCH 27.4 MCHC 33.7 RDW Std Deviation 14.9 H Plt Count 123 L MPV 12.1 H Specimen Type ARTERIAL Sample Site R RADIAL pH 7.33 L pCO2 35 pO2 103 H HCO3 19.7 L Base Excess -6.6 L Oxyhemoglobin 95.3 ABG O2 Sat (Calculated) 18.2 ABG O2 Saturation 98.5 ABG Carboxyhemoglobin 1.90 ABG Methemoglobin 1.3 Abhijit Test YES A-a O2 Difference 67.0 Total Hemoglobin 13.5 Lactate 1.30 Blood Gas Modality VENTILATOR Vent Mode A/C Spontaneous Rate 26 FiO2 % 30.0 Tidal Volume 500 PEEP 5.0 Sodium 139 Potassium 4.3 Chloride 100 Carbon Dioxide 17 L Anion Gap 22 BUN 93 H Creatinine 9.2 H Estimated GFR/1.73 m2 8 BUN/Creatinine Ratio 10 Glucose 117 H Calculated Osmolality 307 Calcium 7.4 L Total Bilirubin 0.50 AST 148 H ALT 876 H Alkaline Phosphatase 74 Total Protein 5.7 L Albumin 2.7 L Globulin 3.0 Albumin/Globulin Ratio 0.9 Assessment: Acute respiratory failure. Influenza. s/p Tamiflu. s/p cardiopulmonary arrest. Pulmonary edema vs. pneumonia. Morbid obesity with suspected THERESE. Elevated LFTs secondary to shock liver. Improving. Acute systolic heart failure. Dr. Warren on board. Acute kidney injury. Worsened. Dr. Roland on board. Mild acidemia with AG metabolic acidosis and metabolic alkalosis. Prognosis guarded. Plan: Continue ventilatory support. We checked Ventilation and titrated to the patients needs per clinical protocols. We titrated Nimbex and Fentanyl to the patients needs per clinical protocols. Continue weaning Nitro drip per clinical protocols. We will keep closely monitoring patients blood pressure. Continue antibiotic Zosyn (On Day 3) and Linezolid (on Day 2). Continue bronchodilators. Continue GI and DVT prophylaxis. Total evaluation time in minutes: 34.
--- NOTE | 2019-11-24 16:06 | PROGRESS NOTE ---
DATE: 11/24/2019 INTERVAL HISTORY: The patient is fairly stable overall. Had some mildly elevated temperatures to 100.2 yesterday but none so far today. Still a little tachycardic on the ventilator but less so than previous. Urine output a little on the low side but better than expected, given his kidney function. REVIEW OF SYSTEMS: Unable to obtain secondary to patient's mental status. LABS: WBC 12.75, hemoglobin 13, hematocrit 38.6, platelets 123,000. ABG with pH 7.33, pCO2 of 33, PO2 of 103, on the ventilator with 30% oxygen. Sodium 139, potassium 4.3, BUN 93, creatinine 9.2, glucose 117. AST 148, ALT 876, bilirubin 0.5. IMAGING: Chest x-ray with approximately stable bilateral lower lobe pneumonia. VITALS: T-max 99.3 degrees, pulse 107, respirations 26, blood pressure 141/84, O2 saturation 98% on ventilator. PHYSICAL EXAMINATION: General: No acute distress, intubated and sedated. Vitals: As above. HEENT: Normocephalic, atraumatic. Moist mucous membranes. Some scleral edema noted. Cardiovascular: Slightly tachycardic but regular. No murmurs noted. Pulmonary: Scattered rhonchi throughout remain, although less prominent than previous. Good air entry throughout. Abdomen: Soft, nontender. Bowel sounds present. Extremities: Peripheral pulses intact. No clubbing or cyanosis. There is 1+ pitting edema bilaterally to the mid vickers, which is new. Neurologic: Pupils equal, round, reactive to light. Withdraws to noxious stimuli. Psychiatric: Sedated. ASSESSMENT AND PLAN: 1. Acute hypoxemic respiratory failure, cardiopulmonary arrest. The patient was admitted initially with hypoxic respiratory failure resulting in cardiopulmonary arrest. He is status post hypothermia and was rewarmed yesterday. Had mildly elevated temperatures afterwards but no chinyere fevers and his temperature has been fairly normal today. Continue treating underlying issues as below. 2. Acute systolic congestive heart failure, likely pneumonia, acute respiratory distress syndrome. Ejection fraction 20%. This is favored to be acute cardiomyopathy related to his acute illness and arrest, although some degree of underlying hypertensive heart disease may have been present. Still with diffuse opacities on the lungs on x-ray. On antibiotics with Zosyn and Zyvox. Did have significant fever on admission and leukocytosis. Leukocytosis has significantly improved. Oxygenation is roughly stable from yesterday but significantly improved from admission. If his kidneys were doing better, he would likely be able to be extubated in the next day or two, but given his progressive kidney failure, uncertain if that is going to be likely. 3. Influenza, likely contributing to above. It may have been the initial precipitating factor of all this. Was on Tamiflu but this was discontinued because of his progressive renal failure. 4. Acute kidney injury with likely acute tubular necrosis. Creatinine continues to trend up rapidly, up to 9.2 today. Electrolytes look pretty good and he is not grossly volume overloaded but he is beginning to have some edema and suspect he will need dialysis within the next 24 hours. Nephrology following. 5. Transaminitis, likely shock liver. Appears to be improving. Approaching normal at this point. 6. Elevated troponin. Favor demand ischemia/type 2 myocardial infarction related to severe acute hypoxia but cannot entirely rule out a cardiac component. He may need an ischemic workup once he is less acutely ill. 7. Obstructive sleep apnea, morbid obesity noted. 8. Hypertension. Pretty reasonable control right now. On Coreg via orogastric tube. We will see how he does today. May consider adding some Norvasc if blood pressure remains elevated.
[2019-11-24] MEDS: NITROGLYCERIN 50 MG/D5W 50 MG/250 ML IV.SOLN IV SCH (20:00)
[2019-11-24] MEDS: FENTANYL 1,000 MICROGM in NS 80 ML IV SCH (20:02)
[2019-11-24] MEDS: NS NEB INH SCH (21:42)
[2019-11-25 04:36] LABS: ALLEN TEST YES; BE -6.7 mmoll (-3.0-3.0); BLOOD TYPE ARTERIAL; HCO3-(ACT) 19.7 mmoll (20.0-26.0); METHB 0.6 % (0.0-1.5); O2HB 96.4 % (95.0-99.0); PCO2(98.6) 26 mmHg (35-45); PO2(98.6) 100 mmHg (60-100); SAMPLE BLOOD; SAO2 99.2 % (95.0-100.0); SRATE 26 BPM; THB 11.7 g/dL (11.5-17.4); TVOL 500 mL; pH(98.6) 7.41 (7.35-7.45)
[2019-11-25 04:37] LABS: MODALITY VENTILATOR
[2019-11-25] MEDS: ZOSYN 2.25 GM in NS 50 ML IV SCH (04:40)
[2019-11-25 06:13] LABS: HEMATOCRIT 33.4 % (42.0-52.0); HEMOGLOBIN 11.4 g/dL (14.0-18.0); MCH 28.9 PG (27-31); MCHC 34.1 g/dL (33-37); MCV 84.6 FL (81-99); MPV 11.5 FL (7.4-10.4); RBC 3.95 XMIL (4.7-6.1); WBC 10.35 X1000 (4.8-10.8)
--- NOTE | 2019-11-25 07:42 | Diag Imaging Result Doc PS360 ---
EXAM: CHEST-PORTABLE HISTORY: respiratory failure TECHNIQUE: Single view COMPARISON: 11/24/2019 FINDINGS: No change in the endotracheal tube left-sided PICC line. Nasogastric tube enters the stomach. The heart remains enlarged. The basilar infiltrates or atelectasis similar to the prior exam. No pleural effusions identified. IMPRESSION: No interval improvement Electronically signed by Esteban Gonzalez 11/25/2019 7:40 AM
[2019-11-25 08:24] LABS: ALB/GLOB RATIO 0.7; ALBUMIN 2.4 g/dL (3.5-5.0); CALCIUM 7.4 mg/dL (8.8-10.2); CREATININE 12.3 mg/dL (0.7-1.2); POTASSIUM 3.7 mmol/L (3.5-5.1); TOTAL BILIRUBIN 0.53 mg/dL (0.20-1.00); TOTAL PROTEIN 5.7 g/dL (6.3-8.3)
[2019-11-25] MEDS: COREG PO SCH ×2 (09:08→21:37)
[2019-11-25] MEDS: PEPCID IV SCH ×2 (09:08→21:38)
[2019-11-25] MEDS: SODIUM CHLORIDE 0.9% INJ SCH (09:08)
[2019-11-25] MEDS: HEPARIN SUBQ SCH (09:08)
[2019-11-25] MEDS: XOPENEX NEB INH SCH ×3 (10:11→22:31)
--- NOTE | 2019-11-25 10:34 | PROGRESS NOTE ---
DATE: 11/25/2019 SUBJECTIVE: I have seen and examined Mr. Coelho today. Mr. Coelho continues to be intubated and he is in the Critical Care Unit. was at the bedside at the time of the encounter. OBJECTIVE: Vital signs: Blood pressure is 154/97, pulse of 111, respirations 26, temperature is 98.8 degrees. The patient is saturating 96% on the mechanical ventilator. General: Mr. Coelho is a 29-year-old gentleman. He is in bed. He morbidly obese, 48 for BMI. He is currently intubated. He seems to be synchronizing well with the ventilator. HEENT: Mucosa is pink and moist. Anicteric. Acyanotic. Neck: Supple. Chest: Good air entry bilateral. Cardiovascular: Regular rate and rhythm, slightly tachycardic. No murmurs. Abdomen: Soft. Bowel sounds present. Extremities: No pedal edema. SILVERWARE WASHER: The patient will barely wiggle the toes to extreme painful stimulation on the lower extremities. Pupils are about 2 mm both sides and they are nonreactive. He, however, has cough response to deep suctioning. The patient's I's and O's, urine output 825. He is currently negative balance of -182. IMAGING STUDIES: A chest x-ray shows heart remains enlarged, bibasilar infiltrates or atelectasis similar to the prior exams. LABORATORY DATA: WBC has normalized at 10.35, hemoglobin is 11.4, platelet count is down to 84. Chemistry is also reviewed. Creatinine is up to 12.3, BUN is 118, bicarb is 16 with a gap of 20. So far blood cultures have been 48 hours negative. ASSESSMENT: 1. Acute hypoxemic respiratory failure leading to cardiopulmonary arrest. The patient went through hypothermia protocol. 2. Acute respiratory distress syndrome. The patient continues to be intubated. Pulmonary medicine on board. 3. Severe uncontrolled hypertension on presentation. 4. Influenza pneumonia. Patient has completed treatment with Tamiflu. He continues to be on antimicrobial for possible bacterial pneumonia as well. Unfortunately, his platelet count continues to reduce, so I have discontinued Zosyn with the Zyvox changed to cefepime with doxycycline. 5. Shock liver. 6. Elevated troponin presumably from type 2 myocardial infarction. 7. Severe systolic dysfunction with ejection fraction of 20%, presumably a combination of stress and viral cardiomyopathy on the background of possible long-standing heart dysfunction from uncontrolled hypertension. 8. Obstructive sleep apnea. 9. Unresponsiveness. Mr. Coelho continues currently to be unresponsive. He was on fentanyl, which has been discontinued. His pupils do not seems to be reactive. However, he has gag. We are going to get Neurology to evaluate him and we will also get an EEG on him. 10. Acute kidney injury presumably from acute tubular necrosis. Creatinine continues to worsen. The patient is getting more acidotic. BUN is extremely elevated. The patient has been evaluated by Nephrology, and I think there is a plan for vascular access and dialysis later on today. In general, Mr. Coelho is extremely complicated and very sick, presented because of severe respiratory failure, went into cardiac arrest, was intubated and went through the hypothermia protocol. He remains with worsening renal failure and there is a plan for dialysis today. We are going to get Neurology to evaluate his neurological status after the cardiac arrest. The concern is if Mr. Coelho did suffer from any significant anoxic brain injury. The platelet count continues to drop, so I have discontinue his heparin, Zosyn and Zyvox. cc: Osvaldo Santa MD
[2019-11-25] MEDS: MAXIPIME 0.5 GM in NS 50 ML IV SCH ×2 (10:48→21:37)
[2019-11-25] MEDS: DOXYCYCLINE 100 MG in NS 250 ML IV SCH ×2 (10:49→21:38)
[2019-11-25] MEDS ORDERED: HEPARIN IV PRN (11:12)
[2019-11-25] MEDS ORDERED: NS 2,000 ML MISC PRN (11:12)
[2019-11-25] MEDS ORDERED: TIGHT: 0.2 ML/HR FOR DIALYSIS MISC PRN (11:12)
--- NOTE | 2019-11-25 12:24 | CARDIOLOGY PROGRESS NOTE ---
DATE: 11/25/2019 CHIEF COMPLAINT: Shortness of breath. SUBJECTIVE: Mr. Coelho remains intubated. There has been no significant change cardiac dickson or from the viewpoint of mental status since this weekend. is at the bedside. The patient is still heavily sedated. No obvious responsiveness noted. OBJECTIVE: Blood pressure is 161/100, pulse rate 112, respiratory rate 26, temperature is 98.8. The patient is unresponsive, sedated. HEENT: Unremarkable. Chest: Diffusely diminished breath sounds. Heart sounds are regular and rhythmic, tachycardic, with a gallop sound. Abdomen: Not distended, soft. Bowel sounds diminished. Extremities: Trace brawny edema. Neurologic: He is very sedated and unresponsive. DIAGNOSTIC DATA: White cell count is 10,350, hemoglobin 11.4, hematocrit 33.4. His blood gases on FiO2 of 0.3 show pH of 7.41, pCO2 of 26, pO2 of 100. Sodium is 141, potassium 3.7, BUN is 118, creatinine 12.3. His ALT has dropped to 462, AST has dropped to 68. Bilirubin is 0.53. Albumin is 2.4. IMPRESSION: 1. The patient presented with multiorgan failure secondary to influenza A on top of probably chronic systolic heart failure. He has developed, unfortunately, rapidly progressive renal insufficiency, and his creatinine from a baseline of 1.4 on admission has crept up to 12.3 mg/dL, and with that value and his overall status, he is probably better served by hemodialysis. The kidney team is going to take care of that. 2. The followup echocardiogram that we did on 11/22/2019 showed that his ejection fraction is still markedly impaired in the range of 15% to 20%. RECOMMENDATIONS: At this time, basically we will continue supportive measures. Prognosis is very guarded. We will try to put him on some sort of vasodilator that will not affect the kidney function. We may have to use nitroglycerin or nitroglycerin paste plus hydralazine. He has already been started on IV nitroglycerin. Beta blockers have been given. We will see how the patient does over the next 48 hours to 72 hours. cc: Richard Lomeli MD
--- NOTE | 2019-11-25 12:30 | OPERATIVE NOTE ---
PROCEDURE DATE: 11/25/2019 PREOPERATIVE DIAGNOSIS: Acute renal failure requiring hemodialysis. POSTOPERATIVE DIAGNOSIS: Acute renal failure requiring hemodialysis. PRINCIPAL PROCEDURE: Right internal jugular Vas-Cath using ultrasound. SURGEON: Kaela Oviedo MD. ANESTHESIA: IV sedation. ESTIMATED BLOOD LOSS: 25 mL. DRAINS: None. INDICATIONS: Mr. Misbah Coelho is a 29-year-old, black male in ICU 14. He is ventilated and unresponsive, and has developed acute renal failure requiring hemodialysis. We were asked by the ciso to place access for hemodialysis. DESCRIPTION OF PROCEDURE: The patient was placed flat in his bed ICU 14. His right neck, shoulder and anterior chest were prepped and draped in a sterile field. I used ultrasound to identify the right internal jugular vein between the 2 heads of the right sternocleidomastoid muscle. Using ultrasound guidance, I placed an 18-gauge needle into the right internal jugular vein. This was accessed on the first stick. A guidewire was placed through the needle into the right side of the heart. The needle was removed and I made a small gayle in the skin at the exit site of the guidewire base of right neck. Sequential dilators were placed over the guidewire, and then a 13 cm in length Trialysis catheter was placed over the guidewire into the superior vena cava. All 3 ports were functioning and were flushed with saline. I secured the catheter to the skin with two 3-0 nylon stitches. A dressing was applied by nursing. We will get a chest x-ray to confirm position. He tolerated the procedure well. cc: Kaela Oviedo MD
--- NOTE | 2019-11-25 12:52 | Diag Imaging Result Doc PS360 ---
EXAM: CHEST-PORTABLE INDICATION: Vas-Cath placement TECHNIQUE: One view COMPARISON: 11/25/2019 FINDINGS: There is a newly placed right Vas-Cath. The tip projecting over the lower SVC in the expected position. There is no evidence of pneumothorax postplacement. There are increased infiltrates and increased central vasculature bilaterally since the previous study. This suggests worsening pulmonary venous congestion and pulmonary edema. Cardiac silhouette is stable. There is no evidence of pneumothorax. IMPRESSION: 1.Interval placement of right Vas-Cath with no evidence of pneumothorax. 2.Worsening pulmonary edema and pulmonary venous congestion. Electronically signed by Jareth Orozco 11/25/2019 12:50 PM
[2019-11-25] MEDS: NS 500 ML IV SCH (14:09)
--- NOTE | 2019-11-25 17:17 | NEUROLOGY CONSULTATION ---
DATE: 11/25/2019 REASON FOR CONSULT: Altered mental status HISTORY OF PRESENT ILLNESS: This is a 29-year-old male who was admitted on 11/20/2027 with influenza A, ultimately sustaining a cardiopulmonary arrest in the evening of 11/20/2019. He was resuscitated for 10 minutes before return of spontaneous circulation. He suffered injury to both his liver and kidneys. AST and ALT peaked at 27, 89 and 1999, respectively, currently 68 and 462. His renal function however has continued to steadily decline and his creatinine now is 12.3, today with a BUN of 118. He is about to start dialysis. The patient did undergo the hypothermia protocol following his cardiac arrest. He was on a paralytic as well as Fentanyl. It looks like he reached normal body temperature I believe on 11/22/2019 at 1645. Nimbex was discontinued at 1700. Fentanyl was discontinued to me it looks like this morning at 9:45 a.m. The patient has not woken up in the days after he was rewarmed and, therefore, Neurology has been consulted for evaluation. There has been no history of major neurologic event in the past. Mother reports the patient was unwell in the days leading up to his hospital presentation. It looks as though he was started on antibiotic and Tamiflu before admission. His symptoms continued to worsen prompting ER evaluation. PAST MEDICAL HISTORY: There is a concern for untreated hypertension. There is also mention of possible sleep apnea. ALLERGIES: Tea tree oil. CURRENT MEDICATIONS: Reviewed in the chart. Cefepime was started today. I believe fentanyl was actually discontinued this morning at 9:45 a.m. The paralytic agent was discontinued the evening of 11/22/2019. I do not see p.r.n. sedating medications. SOCIAL HISTORY: He is . Listed as no alcohol or tobacco. FAMILY HISTORY: Positive for stroke, heart disease, brain aneurysm in his father. REVIEW OF SYSTEMS: Unobtainable as the patient is intubated/unresponsive. PHYSICAL EXAMINATION: Currently afebrile. His last fever was 100.2 on 11/23/2019. Blood pressures were 130 to 170s over 80 to 122 early on in his hospitalization. Currently today the range has been 118 to 185 over 72 to 113. He has been tachycardic current 117. Respirations 26. He is on mechanical ventilation.General: Mr. Coelho is supine in bed with eyes closed. He is on mechanical ventilation. There is no response to loud voice. No response to sternal rub. Pupils are 4 mm bilaterally and I did not see definite reaction to bright light. No blink to threat. No definite horizontal eye movement with passive head turning. Corneal responses are absent bilaterally. I did not see a cough or gag today. There was no response to noxious stimulus applied either proximally or distally in the limbs x4. Reflexes are absent. Plantar responses silent. No clonus. DIAGNOSTICS: There is no cranial imaging. Labs: White count peaked at 20, current 10.5. Platelets 84,000 which is trending down. Blood gases noted. Normal sodium. BUN current 118 trending up. Creatinine currently 12.3 trending up. Blood glucose 107 to 117. Calcium of 7.4. Phosphorus last check 6.7, AST peaked at 2789, current 68. ALT peaked at 2194, current 462. The patient is positive for influenza A. ASSESSMENT AND PLAN: Global encephalopathy, comatose, in the setting of recent cardiopulmonary arrest and hypothermia protocol. He was re-warmed to temperature on the evening of 11/22/2019; fentanyl was stopped this morning. There is no response. This is concerning, but it is possible that it is related to recent hypothermia protocol, significant metabolic derangements and lingering sedation. The patient has not had cranial imaging. I will order a head CT now to be done when able. An EEG has also been ordered and I will review that. For now would continue treating his medical problems and continuing supportive care. Time will tell. I updated the family at bedside and all questions were answered. Thank you for the consultation. cc: Khushi Mccann MD [facility]
--- NOTE | 2019-11-25 19:01 | Diag Imaging Result Doc PS360 ---
CT HEAD W/O CONTRAST - 11/25/2019 INDICATION: unresponsive. s/p cardiac arrest COMPARISON: None FINDINGS: There is significant diffuse cerebral and cerebellar edema with loss of the andrade-white matter differentiation. There is bilateral uncal herniation. There is herniation at the foramen magnum. There is early infarction of the medial left temporal lobe. IMPRESSION: Findings consistent with brain . This report was discussed with RT Radha on 11/25/2019 at 6:55 PM and was readback. This exam was performed using automated exposure control, adjustment of mA or kV according to patient size, and/or use of iterative reconstruction technique Electronically signed by Shady Alicea 11/25/2019 6:59 PM
--- NOTE | 2019-11-25 19:01 | PROVIDER PROGRESS NOTE ---
Progress Note Subjective: The patient was intubated and sedated. No family at bedside. Objective: Temperature temperature 98.8, pulse 112, respirations 26, blood pressure 173/110, 02 sat 96% on 30% FiO2 mechanical ventilation. General: elderly -[place] male lying in bed in no acute distress. HEENT: normocephalic, atraumatic. Pupils nonreactive, Mucous membranes dry. Trachea midline. Skin: warm and dry. Neck: supple, JVD elevated. Cardiovascular: distance heart tones noted. S1S2, tachycardic rate and rhythm. No murmur or gallop noted. Respiratory: coarse anteriorly. Abdomen: soft, obese, nontender, nondistended. Hypoactive bowel sounds noted. : Non inspected, larsen in place. Extremities: Trace edema to BLE. Neurological: Sedated. Labs: WBC 10.35, hemoglobin 11.4, hematocrit 33.4, platelet count 84, sodium 141, potassium 3.7, chloride 105, carbon dioxide 16, BUN 118, creatinine 12.3. Intake 1238, output 1025. Impression: Acute kidney injury. Ischemic acute tubular necrosis secondary to hypoxemia and cardiac arrest. His BUN and creatinine continue to rise. We Will consult surgery for a vascular access for hemodialysis and plan for SLED after placement of the access has been confirmed. Blood pressure. Elevated. Nitroglycerin IV in place. Anemia. Stable. Electrolytes. In target. Anion gap acidosis. Likely from cardiopulmonary arrest, renal failure, and elevated lactic acid. Nutrition. Defer to primary. Medication review. No changes.
--- NOTE | 2019-11-25 19:37 | PROVIDER PROGRESS NOTE ---
Progress Note Dr. Kruse Progress Note/Pulmonary and or critical care Subjective: The patient stays intubated. He has been fever free for 2 days. He still has tachycardia, tachypnea and high blood pressure. He just underwent right internal jugular Vas-Cath placement using ultrasound. RN reports that patient did not wake up during the sedation vocation this morning with nonresponsive pupils. He is on Nitro drip only. and mother at the bedside. Input was appreciated from Dr. Santa and other teams on the case. Objective: Vital Signs: 98.8 (No fever over 24 hours), MO 111, RR 26, BP 154/97 and SaO2 96% on AC 26, 30%, 500, 5. I/O: +213 ml. Physical Examination: General: Intubated. Morbidly obese. No acute distress noted. On hypothermia protocol. HEENT: Normocephalic. Trachea midline. ET tube in place. Mucosa pink and moist. Chest: Mechanically ventilated. Symmetrical excursion. Good air entry and clear to auscultation bilaterally. CVS: S1 and S2 appreciated. Abdomen: Soft. Non-distended. Obese. Normoactive bowel sounds noted. Extremities: BLE trace edema. No cyanosis. No clubbing. Neuro: Sedated. Labs and Radiology: Laboratory Results 11/25/19 11/25/19 11/25/19 04:10 05:00 07:43 WBC 10.35 RBC 3.95 L Hgb 11.4 L Hct 33.4 L MCV 84.6 MCH 28.9 MCHC 34.1 RDW Std Deviation 15.0 H Plt Count 84 L D MPV 11.5 H Specimen Type ARTERIAL Sample Site R RADIAL pH 7.41 pCO2 26 L pO2 100 HCO3 19.7 L Base Excess -6.7 L Oxyhemoglobin 96.4 ABG O2 Sat (Calculated) 16.0 ABG O2 Saturation 99.2 ABG Carboxyhemoglobin 2.20 ABG Methemoglobin 0.6 Abhijit Test YES A-a O2 Difference 81.0 Total Hemoglobin 11.7 Lactate 1.10 Blood Gas Modality VENTILATOR Vent Mode A/C Spontaneous Rate 26 FiO2 % 30.0 Tidal Volume 500 PEEP 5.0 Sodium 141 Potassium 3.7 Chloride 105 Carbon Dioxide 16 L Anion Gap 20 BUN 118 H Creatinine 12.3 H* Estimated GFR/1.73 m2 6 BUN/Creatinine Ratio 10 Glucose 107 H Calculated Osmolality 319 Calcium 7.4 L Total Bilirubin 0.53 AST 68 H ALT 462 H Alkaline Phosphatase 61 Total Protein 5.7 L Albumin 2.4 L Globulin 3.3 Albumin/Globulin Ratio 0.7 Assessment: Acute respiratory failure. Influenza. s/p Tamiflu. s/p cardiopulmonary arrest. Pulmonary edema vs. pneumonia. CXR today shows no interval improvement. Morbid obesity with suspected THERESE. Elevated LFTs secondary to shock liver. Improving. Acute systolic heart failure. Dr. Warren on board. Acute kidney injury. Worsened. Vas-Cath placed today and dialysis planning per Dr. Roland. AG metabolic acidosis compensated with metabolic alkalosis and respiratory alkalosis. Prognosis guarded. Plan: Continue ventilatory support. We checked Ventilation and titrated to the patients needs per clinical protocols. We will keep closely monitoring patients response. Continue weaning Nitro drip per clinical protocols. We titrated Nitro drip to patients needs per clinical protocols. We will keep closely monitoring patients blood pressure. Continue antibiotics: Zosyn (On Day 3) and Linezolid (on Day 2) discontinued; Cefepime and Zosyn added today. Neurologist consulted. Continue bronchodilators. Continue GI and DVT prophylaxis. Total evaluation time in minutes: 34.
--- NOTE | 2019-11-25 20:49 | PROGRESS NOTE ---
DATE: 11/25/2019 SUBJECTIVE: I have seen and examined Mr. Misbah Coelho this evening. Mr. Coelho does not respond to any painful stimulation. The ventilator is set at 26, and he is breathing 26. He was evaluated early on by Neurology, and it was felt that he needed brain imaging. This was done at about at about 6:55 this evening. The report was discussed with the attending nurse, and I was notified. The report stated that the findings were consistent with brain . I came to the ICU. I met with the , the mother and the brother. We discussed the CT scan report and the fact that the patient's clinical picture is also consistent with the brain imaging studies. They are now aware that Mr. Coelho is brain , and that if and when the ET tube is removed, his vitals will follow accordingly. We discussed the process of wanting to remove the ET tube; however, they want us to keep it in until tomorrow morning since they have other family members coming from out of town wanting to come and see him. Organ donation has also been notified, and they want us to do a weaning trial before they can come and see or start any arrangements. We will therefore keep the ET tube and maintain his hemodynamics and wait for Neurology to evaluate him tomorrow and Pulmonary to initiate the brain protocol. I have notified the the night hospitalist shift. cc: Osvaldo Santa MD [facility]
[2019-11-26 04:39] LABS: ALLEN TEST YES; BLOOD TYPE ARTERIAL; HCO3-(ACT) 25.6 mmoll (20.0-26.0); METHB 1.2 % (0.0-1.5); O2(CT) 16.4 mL/dL (15.0-23.0); O2HB 93.6 % (95.0-99.0); PCO2(98.6) 28 mmHg (35-45); PO2(98.6) 73 mmHg (60-100); SAMPLE BLOOD; SAO2 96.5 % (95.0-100.0); SRATE 26 BPM; THB 12.4 g/dL (11.5-17.4); TVOL 500 mL; pH(98.6) 7.52 (7.35-7.45)
[2019-11-26 04:40] LABS: MODALITY VENTILATOR
[2019-11-26 06:24] LABS: HEMATOCRIT 32.7 % (42.0-52.0); MCH 27.5 PG (27-31); MCHC 33.6 g/dL (33-37); MCV 81.8 FL (81-99); MPV 10.8 FL (7.4-10.4); RDW 14.6 % (11.5-14.5); WBC 10.21 X1000 (4.8-10.8)
[2019-11-26] MEDS ORDERED: NS 2,000 ML MISC PRN (06:30)
--- NOTE | 2019-11-26 06:30 | Diag Imaging Result Doc PS360 ---
EXAM: CHEST-PORTABLE HISTORY: respiratory failure TECHNIQUE: Single view COMPARISON: 11/25/2019 FINDINGS: No change in the right jugular line, the nasogastric tube, or left-sided PICC line. The heart remains enlarged. There are infiltrates and atelectasis in the lower lungs. These appear slightly less prominent than the right base. There are also probably small pleural effusions. IMPRESSION: Mild interval improvement Electronically signed by Esteban Gonzalez 11/26/2019 6:28 AM
[2019-11-26 06:34] LABS: ALB/GLOB RATIO 0.7; ALBUMIN 2.5 g/dL (3.5-5.0); CREATININE 9.6 mg/dL (0.7-1.2); POTASSIUM 3.4 mmol/L (3.5-5.1); TOTAL BILIRUBIN 0.48 mg/dL (0.20-1.00)
[2019-11-26] MEDS ORDERED: TYLENOL LIQUID PO PRN (07:33)
[2019-11-26] MEDS: PEPCID IV SCH (08:12)
[2019-11-26] MEDS: COREG PO SCH (08:12)
[2019-11-26] MEDS: XOPENEX NEB INH SCH ×3 (09:50→22:42)
[2019-11-26] MEDS: MAXIPIME 0.5 GM in NS 50 ML IV SCH ×2 (09:53→22:45)
[2019-11-26] MEDS: DOXYCYCLINE 100 MG in NS 250 ML IV SCH ×2 (09:54→23:30)
--- NOTE | 2019-11-26 09:55 | PROGRESS NOTE ---
DATE: 11/26/2019 SUBJECTIVE: Mr. Coelho was admitted on 11/20/[address] Santa on the Hospitalist service and he was admitted with respiratory failure. He was positive for influenza and had pneumonia, admitted to [facility]. However, he became more short of breath and was sent to CT angiogram to rule out PE. During the CT scan, he became more short of breath, extremely diaphoretic, vomiting, spitting out some pink frothy sputum. He was brought immediately to ICU. In the initial stages in the ICU. He was given morphine, was also given 20 mg IV labetalol, 2 mg of Ativan and 225 mg of Phenergan. He continued to have slow impending respiratory deterioration. Anesthesia was called and he was intubated, endotracheal intubation. Before Anesthesia come, Mr. Coelho lost his pulse and was resuscitated with chest compressions for approximately 10 minutes. A total of about 6 epinephrines were given, 1 amp of bicarb, 1 amp of calcium gluconate. The patient successfully intubated and moved to the unit. He was put on the hypothermia protocol, treated aggressively with antibiotics. Attempts were made to try and wean. He had a CT of his head done and neurologically, he had global encephalopathy, comatose in the setting of recent cardiopulmonary arrest. Hypothermia protocol, he was rewarmed to temperature in the evening of 11/22/2019. Fentanyl was stopped and it was concerning that his neurologic assessment did not improve. He went and had a CT done. He had an EEG that had been ordered and Dr. Mccann is reviewing that, but the CT scan of his head on 11/25/2019 findings consistent with brain , and the family has decided to attempt to get him off the ventilator and they have called for organ donation. He is ventilator-dependent. He is not able to breathe independent of the ventilator based on our previous attempts. His CT scan showed significant diffuse cerebral and cerebellar edema, loss of andrade-white matter differentiation, bilateral uncal herniation. There is herniation at the foramen magnum. There is early infarction of the medial left temporal lobe. PHYSICAL EXAMINATION: Vital signs: Temperature was 100.6 degrees, his pulse 105, respirations 26, blood pressure 134/74. Lungs: Clear anterolateral. Cardiovascular: Appears to be a sinus tachycardia. Abdomen: Nondistended. Skin: Warm and dry. cc: Abhijit Elizabeth MD
--- NOTE | 2019-11-26 10:11 | PROGRESS NOTE ---
DATE: 11/26/2019 SUBJECTIVE: Mr. Coelho presented with shortness of breath. He had been seen in the outpatient clinic and felt he had bronchitis. I believe what family has said that he had had some left ventricular dysfunction in the past, severe uncontrolled hypertension in the past. He was flu positive and had pneumonia and appeared to have sepsis on admission. I believe he had chronic kidney disease with acute kidney injury and he, early in the morning on 11/19/2019, he was admitted for respiratory failure. He was-flu positive and radiographically had pneumonia. Initially admitted to [facility]. He became more short of breath, sent to get a CT scan with angiogram to rule out PE. Unfortunately, in the CT scan, he became more short of breath, became extremely diaphoretic, vomiting, spitting out some pink frothy sputum, so he was brought immediately to the ICU. During initial stay in the ICU, he was given morphine, also given 20 mg of IV labetalol, 2 mg of Ativan, 25 mg of Phenergan. Continued to show impending respiratory arrest, so Anesthesia was called and he was intubated. Before anesthesia could come in, Mr. Coelho lost a pulse and was resuscitated for about 10 minutes and a total of 5 to 6 epinephrine was given, 1 amp of bicarb, 1 amp of calcium gluconate, and he was successfully intubated. Post intubation EKG seemed to suggest tachycardia, some right heart strain suspicious of ST-segment mid elevation in V1 and V2. Cardiology was called and he was put on hypothermia protocol, begun on antibiotics for possible sepsis. His weaning trials and his sedation-free trials were concerning because he had just global encephalopathy and they did a CT of his head on 11/25/2019, findings consistent with brain . He had significant diffuse cerebral and cerebellar edema and loss of andrade/white matter differentiation. There is bilateral uncal herniation. There was herniation in the foramen magnum and early infarction of his medial left temporal lobe, and clinically his pupils are unreactive. He was not moving his lower extremities. Reflexes absent. PHYSICAL EXAMINATION: Vital signs: Today, temperature 100.6 degrees, pulse 105, respirations 26, blood pressure 134/74. Lungs: Clear anterolateral. Cardiovascular: He has sinus tachycardia. Abdomen: Nondistended. Extremities: He had pulses in the carotid. Radial, pedal pulses were symmetrical. ASSESSMENT AND PLAN: The patient with significant swelling and herniation in his brain and he clinically is brain . He does not have any evidence of active infection. He is not coughing or gagging. He does have a low-grade temperature of 100.6 degrees, LABORATORY DATA: [place] [id number], hematocrit is 32, platelet count is 111,000. Chemistry: Sodium 147, potassium 3.4, chloride 107, BUN 76, creatinine is 9. cc: Abhijit Elizabeth MD
[2019-11-26 12:56] LABS: HEPATITIS PROFILE ACUTE SEE COMMENTS
[2019-11-26 13:34] LABS: ALLEN TEST YES; BE 1.8 mmoll (-3.0-3.0); BLOOD TYPE ARTERIAL; HCO3-(ACT) 26.2 mmoll (20.0-26.0); METHB 0.7 % (0.0-1.5); O2(CT) 17.7 mL/dL (15.0-23.0); O2HB 93.9 % (95.0-99.0); PCO2(98.6) 37 mmHg (35-45); PO2(98.6) 78 mmHg (60-100); SAMPLE BLOOD; SAO2 96.4 % (95.0-100.0); SRATE 18 BPM; THB 13.4 g/dL (11.5-17.4); TVOL 500 mL; pH(98.6) 7.45 (7.35-7.45)
[2019-11-26 13:35] LABS: MODALITY VENTILATOR
[2019-11-26 14:36] LABS: ALLEN TEST YES; BE 1.7 mmoll (-3.0-3.0); BLOOD TYPE ARTERIAL; HCO3-(ACT) 26.2 mmoll (20.0-26.0); METHB 1.2 % (0.0-1.5); O2(CT) 17.5 mL/dL (15.0-23.0); O2HB 96.8 % (95.0-99.0); PCO2(98.6) 38 mmHg (35-45); PO2(98.6) 331 mmHg (60-100); SAMPLE BLOOD; SAO2 99.5 % (95.0-100.0); SRATE 18 BPM; THB 12.2 g/dL (11.5-17.4); TVOL 500 mL; pH(98.6) 7.44 (7.35-7.45)
[2019-11-26 14:37] LABS: MODALITY VENTILATOR
[2019-11-26] MEDS ORDERED: NEO-SYNEPHRINE 50 MG in NS 250 ML IV SCH (15:00)
[2019-11-26 15:23] LABS: ALLEN TEST YES; BE -0.1 mmoll (-3.0-3.0); BLOOD TYPE ARTERIAL; HCO3-(ACT) 24.9 mmoll (20.0-26.0); METHB 0.8 % (0.0-1.5); O2HB 97.9 % (95.0-99.0); PO2(98.6) 288 mmHg (60-100); SAMPLE BLOOD; SAO2 100.3 % (95.0-100.0); THB 11.8 g/dL (11.5-17.4); pH(98.6) 7.23 (7.35-7.45)
[2019-11-26 15:25] LABS: MODALITY CANNULA; PCO2(98.6) 69 mmHg (35-45)
--- NOTE | 2019-11-26 16:28 | PROVIDER PROGRESS NOTE ---
Progress Note Subjective: The patient was intubated and sedated. Family at bedside. Staff made us aware of anticipated harvesting of organs when officially announced brain . Objective: Temperature 99.9, pulse 100, respirations 26, blood-pressure 98/58, 02 sat 95% on 30% FiO2 mechanical ventilation. General: -Citizen Of [place] male lying in bed in no acute distress. HEENT: normocephalic, atraumatic. Pupils nonreactive, Mucous membranes dry. Trachea midline. Skin: warm and dry. Neck: supple, JVD elevated. Cardiovascular: distance heart tones noted. S1S2, tachycardic rate and rhythm. No murmur or gallop noted. Respiratory: coarse anteriorly. Abdomen: soft, obese, nontender, nondistended. No bowel sounds noted. : Non inspected, larsen in place. Extremities: Trace edema to BLE. Neurological: He is off Any sedation or paralytics. He does not have any corneal reflex. Labs: WBC 10.21, hemoglobin 11, hematocrit 32.7, sodium 147, potassium 3.4, chloride 107, carbon dioxide 22, BUN 76, creatinine 9.6. Intake 665, output 2140. Impression: Acute kidney injury. Ischemic acute tubular necrosis secondary to hypoxemia and cardiac arrest. Staff made us aware that they are going to be declaring him brain and anticipate harvesting his organs. We reached out to the organ donor center and they prefer us to go ahead with hemodialysis treatment today. Blood pressure. Variable. Anemia. Stable. Electrolytes. In target. Anion gap acidosis. Likely from cardiopulmonary arrest, renal failure, and elevated lactic acid. Improved. Nutrition. Defer to primary. Medication review. No change.
--- NOTE | 2019-11-26 18:08 | NEUROLOGY PROGRESS NOTE ---
DATE: 11/26/2019 SUBJECTIVE: There have been no major clinical changes to the patient overnight. Head CT obtained last night showed significant diffuse cerebral and cerebellar edema as well as herniation and early infarction of the medial left temporal lobe. Organ donation services have been present as the family is interested in donation. NEUROLOGIC EXAMINATION: Current blood pressure 103/67, pulse 100, temperature 99.9 degrees. Mr. Coelho is supine in bed with eyes closed. He is unresponsive. He is on the ventilator and not breathing over the vent settings. He is currently receiving dialysis. He is not on sedation. There is no response to voice, sternal rub, supraorbital and external ear noxious stimulus. There is no response to proximal or distal noxious stimulus of all 4 extremities. Pupils are 4 mm, fixed and there is no response to bright light. Corneal reflexes are absent bilaterally. There is no horizontal or vertical eye movement with passive head turning. Absent oculovestibular reflex on caloric testing. Absent jaw jerk. Absent gag. Absent cough. IMPRESSION: Neurologic exam consistent with brain . CT imaging with diffuse cerebral edema with herniation, most likely from global hypoxic ischemic injury related to recent cardiorespiratory arrest. The family is making plans for organ donation. An apnea test is to be performed by RT. I have asked nurse to discuss with pulmonary critical care on the case as well as respiratory therapy. Spoke with the patient's at length. All questions were answered. I let her know I was also available during the day if further questions arise. ADDENDUM: Apnea test was performed by the respiratory therapist. Initial measurements pH of 7.44, pCO2 38, PO2 331, bicarb 26.2, subsequent ABG showing pH of 7.23, pCO2 of 69, PO2 of 288, and bicarbonate of 24.9. There was no visible chest rise or breath during the test. See documentation for further details. cc: Khushi Mccann MD [facility]ITAL[facility]
--- NOTE | 2019-11-26 18:26 | EEG REPORT ---
DATE: 11/25/2019 REFERRING PHYSICIAN: Dr. Santa. WELDING TECHNICIAN: Velma Templeton. BACKGROUND INFORMATION/TECHNIQUE: This is a digitally recorded portable routine EEG with video. HISTORY: A 29-year-old male patient status post cardiac arrest. Unresponsive. EEG is ordered to detect evidence of seizures. EEG FINDINGS: This is a technically limited routine EEG due to persistent diffuse artifact. A posterior dominant alpha rhythm is not visualized. There is background suppression without definite cerebral waveforms identified. No epileptiform discharges or seizures seen. Hyperventilation was not performed. Photic stimulation does not alter the record. There is no evidence of drowsiness or sleep. EKG demonstrates regular intervals. IMPRESSION AND CLINICAL CORRELATION: Abnormal, technically limited, routine EEG due to diffuse background suppression without definite cerebral waveforms identified. This is suggestive of severe diffuse cerebral dysfunction. Clinical correlation is recommended. cc: MD Osvaldo Hope MD
--- NOTE | 2019-11-26 18:51 | PROVIDER PROGRESS NOTE ---
Progress Note Dr. Kruse Progress Note/Pulmonary and or critical care Subjective: The patient stays intubated. He develops fever again. EEG from yesterday suggested severe diffuse cerebral dysfnction. CT scan last night showed findings consistent with brain . at the bedside. Input was appreciated from Dr. Elizabeth and other teams on the case. Objective: Vital Signs: 100.6 (fever over 24 hours), IN 108, RR 26, BP 134/74 and SaO2 94% on AC 26, 30%, 500, 5. I/O: -1475 ml. Physical Examination: General: Intubated. Morbidly obese. No acute distress noted. HEENT: Normocephalic. Trachea midline. ET tube in place. Mucosa pink and moist. Chest: Mechanically ventilated. Symmetrical excursion. Good air entry and clear to auscultation bilaterally. CVS: S1 and S2 appreciated. Abdomen: Soft. Non-distended. Obese. Normoactive bowel sounds noted. Extremities: BLE trace edema. No cyanosis. No clubbing. Neuro: Sedated. Labs and Radiology: Laboratory Results 11/25/19 11/25/19 11/26/19 13:49 13:49 04:00 WBC RBC Hgb Hct MCV MCH MCHC RDW Std Deviation Plt Count MPV PTT (Actin FS) Specimen Type Sample Site pH pCO2 pO2 HCO3 Base Excess Oxyhemoglobin ABG O2 Sat (Calculated) ABG O2 Saturation ABG Carboxyhemoglobin ABG Methemoglobin Abhijit Test A-a O2 Difference Total Hemoglobin Lactate Blood Gas Modality Vent Mode Spontaneous Rate FiO2 % Tidal Volume PEEP Sodium 147 H Potassium 3.4 L Chloride 107 Carbon Dioxide 22 L Anion Gap 18 BUN 76 H Creatinine 9.6 H Estimated GFR/1.73 m2 7 BUN/Creatinine Ratio 8 Glucose 99 Calculated Osmolality 315 Calcium 8.0 L Total Bilirubin 0.48 AST 39 H ALT 297 H Alkaline Phosphatase 56 Total Protein 6.0 L Albumin 2.5 L Globulin 3.5 Albumin/Globulin Ratio 0.7 Procalcitonin SEE COMMENTS Hepatitis Panel SEE COMMENTS 11/26/19 11/26/19 11/26/19 04:00 04:29 07:54 WBC 10.21 RBC 4.00 L Hgb 11.0 L Hct 32.7 L MCV 81.8 MCH 27.5 MCHC 33.6 RDW Std Deviation 14.6 H Plt Count 111 L D MPV 10.8 H PTT (Actin FS) 43.9 H Specimen Type ARTERIAL Sample Site R RADIAL pH 7.52 H pCO2 28 L pO2 73 HCO3 25.6 Base Excess 1.0 Oxyhemoglobin 93.6 L ABG O2 Sat (Calculated) 16.4 ABG O2 Saturation 96.5 ABG Carboxyhemoglobin 1.80 ABG Methemoglobin 1.2 Abhijit Test YES A-a O2 Difference 106.0 Total Hemoglobin 12.4 Lactate 1.20 Blood Gas Modality VENTILATOR Vent Mode Spontaneous Rate 26 FiO2 % 30.0 Tidal Volume 500 PEEP 5.0 Sodium Potassium Chloride Carbon Dioxide Anion Gap BUN Creatinine Estimated GFR/1.73 m2 BUN/Creatinine Ratio Glucose Calculated Osmolality Calcium Total Bilirubin AST ALT Alkaline Phosphatase Total Protein Albumin Globulin Albumin/Globulin Ratio Procalcitonin Hepatitis Panel 11/26/19 11/26/19 11/26/19 13:14 14:30 15:20 WBC RBC Hgb Hct MCV MCH MCHC RDW Std Deviation Plt Count MPV PTT (Actin FS) Specimen Type ARTERIAL ARTERIAL ARTERIAL Sample Site L RADIAL L RADIAL L RADIAL pH 7.45 7.44 7.23 L pCO2 37 38 69 H* pO2 78 331 H 288 H HCO3 26.2 H 26.2 H 24.9 Base Excess 1.8 1.7 -0.1 Oxyhemoglobin 93.9 L 96.8 97.9 ABG O2 Sat (Calculated) 17.7 17.5 17.0 ABG O2 Saturation 96.4 99.5 100.3 H ABG Carboxyhemoglobin 1.90 1.40 1.60 ABG Methemoglobin 0.7 1.2 0.8 Abhijit Test YES YES YES A-a O2 Difference 90.0 335.0 339.0 Total Hemoglobin 13.4 12.2 11.8 Lactate 0.80 0.80 0.60 Blood Gas Modality VENTILATOR VENTILATOR CANNULA Vent Mode A/C Spontaneous Rate 18 18 FiO2 % 30.0 100.0 100.0 Tidal Volume 500 500 PEEP 5.0 5.0 Sodium Potassium Chloride Carbon Dioxide Anion Gap BUN Creatinine Estimated GFR/1.73 m2 BUN/Creatinine Ratio Glucose Calculated Osmolality Calcium Total Bilirubin AST ALT Alkaline Phosphatase Total Protein Albumin Globulin Albumin/Globulin Ratio Procalcitonin Hepatitis Panel Assessment: Acute respiratory failure. Influenza. s/p Tamiflu. s/p cardiopulmonary arrest. Pulmonary edema vs. pneumonia. CXR today shows mild interval improvement. Morbid obesity with suspected THERESE. Elevated LFTs secondary to shock liver. Improving. Acute systolic heart failure. Dr. Warren on board. Acute kidney injury. Worsened. Dr. Roland on board. AG metabolic acidosis compensated with metabolic alkalosis and respiratory alkalosis. Possible brain with Severe diffuse cerebral dysfunction. Per clinical exam and CT scan, patient has brain . We are waiting for apnea test at this time. Plan: Continue ventilatory support. We checked Ventilation and titrated to the patients needs per clinical protocols. We will keep closely monitoring patients response. Continue weaning Nitro drip per clinical protocols. We titrated Nitro drip to patients needs per clinical protocols. We will keep closely monitoring patients blood pressure. Continue antibiotics: Cefepime and Doxycycline. Neurologist consulted. Continue bronchodilators. Continue GI and DVT prophylaxis. Per clinical exam and CT scan, patient has brain . We are waiting for apnea test at this time. Total evaluation time in minutes: 32.
[2019-11-26] MEDS ORDERED: SOLU-MEDROL 1,000 MG in NS 100 ML IV ONE (20:32)
[2019-11-26] MEDS ORDERED: SYNTHROID IV ONE (20:32)
[2019-11-26] MEDS ORDERED: SODIUM CHLORIDE 0.9% INJ ONE (20:32)
[2019-11-26] MEDS ORDERED: SODIUM CHLORIDE 0.9% INJ SCH (20:45)
[2019-11-26] MEDS ORDERED: CRESTOR PO SCH (20:45)
[2019-11-26] MEDS ORDERED: D5 1/2 NS 1,000 ML IV SCH (20:45)
[2019-11-26] MEDS ORDERED: PROTONIX IV SCH (20:45)
[2019-11-26] MEDS ORDERED: PREMARIN IV SCH (20:45)
[2019-11-26] MEDS ORDERED: SYNTHROID 200 MICROGM in NS 500 ML IV SCH (21:00)
[2019-11-26 21:27] LABS: ALLEN TEST YES; BE -1.5 mmoll (-3.0-3.0); BLOOD TYPE ARTERIAL; HCO3-(ACT) 23.7 mmoll (20.0-26.0); METHB 1.1 % (0.0-1.5); O2(CT) 17.6 mL/dL (15.0-23.0); O2HB 95.2 % (95.0-99.0); PCO2(98.6) 41 mmHg (35-45); PO2(98.6) 92 mmHg (60-100); SAMPLE BLOOD; SAO2 98.2 % (95.0-100.0); SRATE 18 BPM; THB 13.1 g/dL (11.5-17.4); TVOL 500 mL; pH(98.6) 7.37 (7.35-7.45)
[2019-11-26 21:28] LABS: MODALITY VENTILATOR
[2019-11-26 21:47] LABS: BASO# 0.24 X1000 (0.0-0.2); BASO% 1.7 % (0.0-0.8); EOS# 0.47 X1000 (0.0-0.7); EOS% 3.4 % (0.0-10.0); HEMATOCRIT 37.3 % (42.0-52.0); HEMOGLOBIN 12.3 g/dL (14.0-18.0); IMM GRAN# 0.66 X1000 (0.0-0.04); IMM GRAN% 4.8 % (0.0-0.5); LYMPH# 2.25 X1000 (1.2-3.4); LYMPH% 16.3 % (20.5-51.1); MCH 28.2 PG (27-31); MCV 85.6 FL (81-99); MONO# 2.75 X1000 (0.11-0.59); MPV 10.2 FL (7.4-10.4); NEUT% 53.8 % (42.2-75.2); PLT 142 X1000 (130-400); RBC 4.36 XMIL (4.7-6.1); RDW 15.2 % (11.5-14.5); WBC 13.77 X1000 (4.8-10.8)
[2019-11-26 21:48] LABS: INR 1.27; PROTIME 16.1 Seconds (11.0-16.0)
[2019-11-26 21:49] LABS: PTT 39.1 Seconds (22.3-41.8)
[2019-11-26 22:00] LABS: HEMOGLOBIN A1C 5.8 % (4.8-6.0)
[2019-11-26] MEDS ORDERED: STERILE WATER INJ. ONE (22:00)
[2019-11-26 22:28] LABS: ALBUMIN 2.8 g/dL (3.5-5.0); CALCIUM 8.2 mg/dL (8.8-10.2); CREATININE 8.5 mg/dL (0.7-1.2); DIRECT BILIRUBIN 0.4 mg/dL (0.00-0.20); MAGNESIUM 2.6 mg/dL (1.5-2.7); PHOSPHORUS 7.2 mg/dL (2.7-4.5); POTASSIUM 4.6 mmol/L (3.5-5.1); TOTAL BILIRUBIN 0.56 mg/dL (0.20-1.00); TOTAL PROTEIN 5.5 g/dL (6.3-8.3)
[2019-11-26] MEDS ORDERED: HEPARIN 25,000 UNITS/D5W 25,000 UNIT/250 ML IV.SOLN IV SCH (22:45)
[2019-11-27 02:31] LABS: ALLEN TEST YES; BE -3.4 mmoll (-3.0-3.0); BLOOD TYPE ARTERIAL; HCO3-(ACT) 22.3 mmoll (20.0-26.0); METHB 1.1 % (0.0-1.5); MODALITY VENTILATOR; O2HB 96.1 % (95.0-99.0); PCO2(98.6) 44 mmHg (35-45); PO2(98.6) 107 mmHg (60-100); SAMPLE BLOOD; SAO2 98.8 % (95.0-100.0); SRATE 18 BPM; THB 12.5 g/dL (11.5-17.4); TVOL 500 mL; pH(98.6) 7.32 (7.35-7.45)
[2019-11-27 02:35] LABS: BASO# 0.03 X1000 (0.0-0.2); BASO% 0.3 % (0.0-0.8); EOS% 0.9 % (0.0-10.0); IMM GRAN% 3.5 % (0.0-0.5); LYMPH# 0.77 X1000 (1.2-3.4); LYMPH% 6.7 % (20.5-51.1); MCH 27.5 PG (27-31); MCHC 32.4 g/dL (33-37); MCV 84.9 FL (81-99); MONO# 0.77 X1000 (0.11-0.59); MONO% 6.7 % (1.7-9.3); MPV 10.3 FL (7.4-10.4); NEUT% 81.9 % (42.2-75.2); PLT 130 X1000 (130-400); RBC 4.36 XMIL (4.7-6.1); RDW 14.9 % (11.5-14.5); WBC 11.47 X1000 (4.8-10.8)
[2019-11-27 03:04] LABS: ALB/GLOB RATIO 0.6; ALBUMIN 2.4 g/dL (3.5-5.0); CALCIUM 8.3 mg/dL (8.8-10.2); CREATININE 9.1 mg/dL (0.7-1.2); DIRECT BILIRUBIN 0.4 mg/dL (0.00-0.20); MAGNESIUM 2.7 mg/dL (1.5-2.7); POTASSIUM 4.8 mmol/L (3.5-5.1); TOTAL BILIRUBIN 0.56 mg/dL (0.20-1.00); TOTAL PROTEIN 6.6 g/dL (6.3-8.3)
[2019-11-27 03:43] LABS: INR 1.31; PROTIME 16.5 Seconds (11.0-16.0)
[2019-11-27 04:19] VITALS: BP 123/79
--- NOTE | 2019-11-27 07:35 | Diag Imaging Result Doc PS360 ---
EXAM: CT THORAX/ABD/PELVIS W/O CON 11/26/2019 HISTORY: organ donation TECHNIQUE: This exam was performed using automated exposure control, adjustment of mA or kV according to patient size, and/or use of iterative reconstruction technique. COMMENT: Thorax: There is an endotracheal tube and an NG tube. The endotracheal tube tip is below the thoracic inlet and well above the mario. There is an NG tube with its tip in the stomach. There is a left-sided PICC catheter with its tip in the right atrium. There is a right internal jugular central venous catheter with its tip in the superior vena cava. There are densely calcified right hilar lymph nodes. There is a calcified nodule in the posterior costophrenic sulcus of the right lower lobe. There is a small amount of pleural fluid bilaterally. There is opacification of both lower lobes. There is some patchy pulmonary edema present elsewhere the regional skeleton appears to be intact. ABDOMEN/pelvis: There is no evidence of nephrolithiasis or hydronephrosis. There are no apparent gallstones. There is no evidence of bowel obstruction. There is some subcutaneous edema over the flanks and back indicating mild anasarca. There is no evidence of appendicitis. There is a Tom catheter in the bladder and a rectal tube. The regional skeleton appears to be intact. IMPRESSION: 1. Granulomatous changes. Bibasilar atelectasis versus pneumonia with small pleural effusions. 2. Mild anasarca. Electronically signed by Roverto Mcneil 11/27/2019 7:33 AM
[2019-11-27] MEDS ORDERED: SOLU-MEDROL IV SCH (09:00)
--- NOTE | 2019-12-26 18:19 | DISCHARGE SUMMARY ---
ADMISSION DATE: 11/19/2019 DISCHARGE DATE: 11/26/2019 HOSPITAL COURSE: This is a 29-year-old who presented on 11/19/2019. He had been seen as an outpatient in clinic, felt to have bronchitis. Family said that he had left ventricular dysfunction in the past, severe uncontrolled hypertension. His flu nasal swab was positive, had pneumonia, appeared to have sepsis on admission. I believe he had chronic kidney disease and acute kidney injury on top of that. Early in the morning of 11/19/2019, he was admitted with respiratory failure and became short of breath, sent to get a CT scan angiogram to rule out PE. Unfortunately in CT scan he became more short of breath, became extremely diaphoretic, vomiting and spitting up some pink frothy sputum. Brought immediately back to the ICU. In ICU he was given morphine, given 20 mg IV labetalol, 2 mg Ativan and 25 mg of Phenergan. He continued to show impending respiratory arrest, so Anesthesia was called. He was intubated. Before Anesthesia could come, he lost a pulse and appeared to go into ventricular fibrillation. He was resuscitated for 10 minutes. Total of 5-6 epinephrine given, 1 ampule of bicarbonate, 1 ampule of calcium gluconate, and he was successfully intubated. Postintubation EKG seemed to suggest tachycardia and some right heart strain, suspicious of ST-segment elevation in V1 and V2. Cardiology was asked to see. We treated him for possible sepsis, but over the hospital course he appeared to have significant CHUMMER injury, global encephalopathy and anoxic injury. CT of the chest, abdomen and pelvis done on 11/25: Some mild anasarca. The family and wanted to take him off of life support but wanted to donate his organs, and so this was arranged. Neurology was involved, Dr. Mccann. Neurologic exam consistent with brain . CT imaging: Diffuse cerebral edema and herniation, most likely form of global hypoxic ischemic injury related to recent cardiorespiratory arrest. The transplant team from [facility] was here and arrangements were made. cc: Abhijit Elizabeth MD
== END 2019-11-26 16:52 | disposition expired | DRG 870 ==
LOC: ED 23:00 → 2N 23:01 → SUATTDRO 23:01 → ICU 11-20 10:22
PROVIDERS: ATTEND Emergency Medicine